=== PATIENT | male | born 1945 | race Caucasian/White ===

== ENCOUNTER 2025-02-14 00:56 | Observation (INO) ==
[2025-02-14 01:21] LABS: Base Excess VBG 5.2 mEq/L; HCO3 VBG 29 mmol/L; Oxygen Saturation VBG 93.5 %; PCO2 VBG 39 mmHg (38-50); PO2 VBG 63 mmHg; pH VBG 7.48 (7.36-7.41)
--- NOTE | 2025-02-14 01:21 | Emergency Department Note ---
History of Present Illness General Chief complaint: Shortness of Breath/Dyspnea Stated complaint: SOB, [employer] Time Seen by Provider: 02/14/25 01:07 History of Present Illness This 79-year-old male with a past medical history of A-fib on Eliquis, heart failure, hypertension who just moved here from [place] presents ER for feeling short of breath and lightheaded with bradycardia. Patient had his pacemaker batteries replaced back in December in [place]. Patient states he feels like his pacemaker has been going off and is set at 50 beats. He states his heart rate has dropped down to 38. Patient denies chest pain, abdominal pain, fever, chills, flulike illness, severe weight changes. Home Medications Medication Instructions Recorded Confirmed Type apixaban 5 mg tablet (Eliquis) 5 mg PO BID 02/14/25 02/14/25 History clonazepam 0.5 mg tablet 0.25 mg PO DAILY PRN Anxiety 02/14/25 02/14/25 History empagliflozin 25 mg tablet 12.5 mg PO QAM 02/14/25 02/14/25 History (Jardiance) ezetimibe 10 mg tablet 10 mg PO HS 02/14/25 02/14/25 History furosemide 20 mg tablet 20 mg PO QAM 02/14/25 02/14/25 History isosorbide mononitrate 30 mg 30 mg PO QAM 02/14/25 02/14/25 History tablet,extended release 24 hr metoprolol succinate 100 mg 100 mg PO BID 02/14/25 02/14/25 History tablet,extended release 24 hr [id number]-[id number] 300 mcg-K 60 1 tab PO DAILY 02/14/25 02/14/25 History mcg-lycop 600 mcg-lutein 300 mcg tablet (Centrum Silver Men) nitroglycerin 0.4 mg sublingual 0.4 mg sublingual UD PRN Chest Pain 02/14/25 02/14/25 History tablet (Nitrostat) rosuvastatin 40 mg tablet 40 mg PO HS 02/14/25 02/14/25 History sacubitril 24 mg-valsartan 26 mg 1 tab PO BID 02/14/25 02/14/25 History tablet (Entresto) spironolactone 25 mg tablet 12.5 mg PO QAM 02/14/25 02/14/25 History Allergies Allergy/AdvReac Type Severity Reaction Status Date / Time No Known Allergies Allergy Unverified 02/14/25 02:32 Past Med/Surg History Problem List (Updated 02/14/25 @ 02:45 by Guerita Larsen PA-C) Elevated troponin (Acute) Congestive heart failure (Acute) Social History Smoking Status: Never smoker Feels Safe at Home: Yes Review of Systems A total of 10 systems reviewed and were otherwise negative Physical Exam Vital Signs Vital Signs - 24 hr 02/14/25 00:59 02/14/25 01:10 02/14/25 01:11 Temperature 36.8 C Temperature Source Temporal Artery Scan Pulse Rate 58 L Pulse Rate [Apical] Respiratory Rate 19 Respiratory Effort / Characteristics Non-Labored Spontaneous Respiratory Depth Normal Blood Pressure 127/75 Blood Pressure [Right Arm] Blood Pressure Mean 92 Blood Pressure Mean [Right Arm] Pulse Oximetry 98 97 97 Oxygen Delivery Method Room Air Room Air Room Air Sepsis Recent Fever Within 48 Hours No Sepsis New/Unexplained Change in Mental Status N/A Sepsis Action Taken by Nursing No Action Required 02/14/25 01:17 02/14/25 01:17 02/14/25 01:30 Temperature Temperature Source Pulse Rate 52 L Pulse Rate [Apical] 50 L 53 L Respiratory Rate 18 18 Respiratory Effort / Characteristics Respiratory Depth Blood Pressure Blood Pressure [Right Arm] 127/61 124/60 Blood Pressure Mean Blood Pressure Mean [Right Arm] 83 81 Pulse Oximetry 96 96 Oxygen Delivery Method Room Air Room Air Sepsis Recent Fever Within 48 Hours Sepsis New/Unexplained Change in Mental Status Sepsis Action Taken by Nursing 02/14/25 02:00 02/14/25 02:46 Temperature Temperature Source Pulse Rate Pulse Rate [Apical] 50 L 50 L Respiratory Rate 18 20 Respiratory Effort / Characteristics Respiratory Depth Blood Pressure Blood Pressure [Right Arm] 99/57 L 105/56 L Blood Pressure Mean Blood Pressure Mean [Right Arm] 71 72 Pulse Oximetry 97 96 Oxygen Delivery Method Room Air Room Air Sepsis Recent Fever Within 48 Hours Sepsis New/Unexplained Change in Mental Status Sepsis Action Taken by Nursing VITALS: Vitals are noted on the nurse's note and reviewed by myself. Vital signs stable. GENERAL: Pleasant male, in no acute distress, nondiaphoretic, well-developed well-nourished. SKIN: Capillary reflex less than 2 seconds. HEENT: Normocephalic. PERRLA. EOMI. Nares patent. Mucous membranes moist. Neck is supple without nuchal rigidity. HEART: Bradycardic rate and rhythm LUNGS: Clear to auscultation bilaterally without wheezes, rales or rhonchi. No retractions or accessory muscle use. ABDOMEN: Positive bowel sounds x 4. Normal tympanic percussion. Soft, nontender, without masses or organomegaly. Arrington sign negative. No guarding or rebound tenderness. no CVA tenderness MUSCULOSKELETAL: No gross musculoskeletal defects. NEURO: Patient was alert and oriented to person place and time. No focal neurological deficits. Course Administered Medications Discontinued Medications Furosemide (Furosemide 40 Mg/4 Ml Vial) 40 mg IV ONE ONE Stop: 02/14/25 02:43 Last Admin: 02/14/25 02:46 Dose: 40 mg Documented By: AN Medical Decision Making Medical Records Attestation: I reviewed the patient's medical records. Home Medications Current Medication List: was personally reviewed by me Laboratory Data Attestation: I reviewed the patient's lab results. 02/14/25 01:13 02/14/25 02:13 Lab Results 02/14/25 02/14/25 02/14/25 Range/Units 01:13 01:16 02:13 WBC 6.12 (4.8-10.8) K/ul RBC 4.81 (4.70-6.10) M/uL Hgb 13.5 L (14.0-18.0) g/dl Hct 41.3 L (42.0-52.0) % MCV 85.9 (80.0-100.0) fL MCH 28.1 (25.0-34.0) pg MCHC 32.7 (32.0-36.0) g/dL RDW Std Deviation 45.5 (36.4-46.3) fL RDW Coeff of Yenifer 14.5 (11.5-14.5) % Plt Count 118 L (130-400) K/uL MPV 11.8 (9.4-12.4) fL Immature Gran % (Auto) 0.2 % Neut % (Auto) 54.2 % Lymph % (Auto) 29.9 % [place] % (Auto) 11.8 % Eos % (Auto) 3.4 % Baso % (Auto) 0.5 % Neut # (Auto) 3.32 (1.40-6.50) K/uL Lymph # (Auto) 1.83 (1.20-3.40) K/uL [place] # (Auto) 0.72 H (0.11-0.59) K/uL Eos # (Auto) 0.21 (0.00-0.50) K/uL Baso # (Auto) 0.03 (0.00-0.20) K/uL Immature Gran # (Auto) 0.01 (0.01-0.20) K/uL PT Cancelled 11.7 INR Cancelled 1.1 APTT Cancelled 37 H PTT Ratio Cancelled 1.4 VBG pH 7.48 H (7.36-7.41) VBG pCO2 39 (38-50) mmHg VBG pO2 63 mmHg VBG HCO3 29 mmol/L VBG O2 Saturation 93.5 % VBG Base Excess 5.2 mEq/L Sodium 139 (136-145) mmol/L Potassium TNP 4.0 Chloride 106 (98-107) mmol/L Carbon Dioxide 29 (21-32) mmol/L Anion Gap 4 (3-11) BUN 26 H (6-23) mg/dl Creatinine 1.31 (0.6-1.4) mg/dl Est Cr Clr Drug Dosing 36.4 ml/min eGFR 55.03 BUN/Creatinine Ratio 19.8 (10-20) Glucose 121 H (70-99(Fasting)) mg/dl Calcium 10.3 (8.6-10.3) mg/dl Magnesium 2.0 (1.7-2.4) mg/dl Total Bilirubin 0.4 (0.2-1.0) mg/dl AST TNP 24 ALT 26 (7-52) U/L Alkaline Phosphatase 45 (34-104) U/L Troponin I High Sens 42.9 H (0-20) pg/ml B-Natriuretic Peptide 1336 H (0-100) pg/ml Total Protein 7.5 (6.0-8.3) gm/dl Albumin 4.4 (3.4-5.0) gm/dl Globulin 3.1 (2.5-4.0) gm/dl Albumin/Globulin Ratio 1.4 (0.9-2) Imaging Data Attestation: I personally reviewed and interpreted this imaging study as follows: Radiologist's Impression: Chest X-Ray 02/14/25 01:05 EXAM: XR chest 1V portable CLINICAL HISTORY: Dyspnea. TECHNIQUE: An X-ray image of the chest is obtained in AP projection. COMPARISON: No prior studies are available for comparison. FINDINGS: Pulmonary Parenchyma: No evidence of consolidation, collapse. A small opacity is noted in the right lower zone adjacent to the costophrenic angle. Left lower zone atelectasis. No evidence of pleural effusion or pleural thickening. Heart and Mediastinum: Mild cardiomegaly. No mediastinal masses. Bony Thorax: Sternotomy sutures are noted. Tiny metallic clips are noted in the right and left mediastinal borders. Soft Tissues: Soft tissues overlying the chest wall are unremarkable. A cardiac pacemaker device is noted in the left mid-thoracic wall. IMPRESSION: Right lower zone opacity adjacent to the costophrenic angle. Possibly atelectasis/infiltrate. Clinical correlation and follow-up is recommended. Left lower zone atelectasis. Mild cardiomegaly with vascular congestion. Electronically signed by Kt Wynn 02-14-2025 02:09 AM MDM Narrative Prior records/ancillary studies reviewed and summarized above. Nursing notes reviewed. Additional history obtained from nursing. The patient's history was concerning for short of breath and feeling lightheaded. Differential diagnosis: Etiologies such as pacemaker problem, heart failure, metabolic, infection, hypo/hyperglycemia, electrolyte abnormalities, cardiac sources, intracerebral event, toxicologic, neurologic, as well as others were entertained. Physical examination: As above. ER treatment provided: IV Lock An order was placed for continuous cardiac monitoring. The monitor shows a rate of 40-80 with a A-fib rhythm per my interpretation. Patient was placed on the monitor On reassessment the patient felt better. Diagnostics interpretation by me: ECG: Ordered for dyspnea EKG: Irregularly irregular with ventricular rate of 53 occasionally paced, left axis, Q waves in the inferior leads. Impression A-fib rate of 53 left axis independently interpreted by myself The labs Independently Interpreted by myself revealed elevated BNP and troponin No worrisome leukocytosis Imaging studies: X-ray was reviewed and read by radiology Consultation: A consultation was placed with the hospitalist. The case was discussed and diagnostics were reviewed. The patient was evaluated in the ER for further treatment. Exam and history seem consistent with heart failure. Patient was given Lasix here. Troponin was most likely elevated secondary to the heart failure. Patient is on Eliquis and has known A-fib. He was rate controlled with his A- fib. Medicine was consulted and case discussed. Patient was admitted to the medical service. By the evaluation outlined above emergent etiologies such as infection, electrolyte abnormalities, intracerebral event, toxologic, neurologic, abnormalities blood glucose, metabolic, as well as others were deemed relatively unlikely. The pt informed about the findings as listed above. All questions were answered and pleased with the treatment. The chart was completed utilizing [employer] Speech voice recognition software. Grammatical errors, random word insertions, pronoun errors, and incomplete sentences are an occassional consequence of this system due to software limitations, ambient noise, and hardware issues. Any formal questions or concerns about the content, text, or information contained within the body of this dictation should be directly addressed to the physician traffic assistant for clarification. Impression & Plan Congestive heart failure, Elevated troponin Discharge Plan Visit Data Chief Complaint: Shortness of Breath/Dyspnea Stated Complaint: SOB, PEACE [employer] ED Provider: Bozena Bonilla ED Midlevel Provider: Guerita Larsen Discharge Problem: Congestive heart failure, Elevated troponin Patient Disposition: Admitted As Inpatient Condition: Fair Forms Stand Alone Forms: [facility] bttn Prescriptions Prescriptions: No Action metoprolol succinate 100 mg tablet extended release 24 hr 100 mg PO BID furosemide 20 mg tablet 20 mg PO QAM ezetimibe 10 mg tablet 10 mg PO HS rosuvastatin 40 mg tablet 40 mg PO HS isosorbide mononitrate 30 mg tablet extended release 24 hr 30 mg PO QAM spironolactone 25 mg tablet 12.5 mg PO QAM Eliquis 5 mg Tablet 5 mg PO BID Jardiance 25 mg Tablet 12.5 mg PO QAM Entresto 24-26 mg Tablet 1 tab PO BID nitroglycerin [Nitrostat] 0.4 mg Tablet, Sublingual 0.4 mg sublingual UD PRN (Reason: Chest Pain) clonazepam 0.5 mg Tablet 0.25 mg PO DAILY PRN (Reason: Anxiety) Centrum Silver Men [id number] mcg Tablet 1 tab PO DAILY Referrals Referrals: PCP,NO [Primary Care Provider] - Discharge Problem: Congestive heart failure Qualifiers: Heart failure type: unspecified Heart failure chronicity: acute Qualified Code(s): I50.9 - Heart failure, unspecified
[2025-02-14 01:28] LABS: Basophils # (auto) 0.03 K/uL (0.00-0.20); Basophils % (auto) 0.5 %; Eosinophils # (auto) 0.21 K/uL (0.00-0.50); Eosinophils % (auto) 3.4 %; Hematocrit (blood only) 41.3 % (42.0-52.0); Hemoglobin 13.5 g/dl (14.0-18.0); Immature Granulocytes # (auto) 0.01 K/uL (0.01-0.20); Immature Granulocytes % (auto) 0.2 %; Lymphocytes # (auto) 1.83 K/uL (1.20-3.40); Lymphocytes % (auto) 29.9 %; Mean Corpuscular Hemoglobin 28.1 pg (25.0-34.0); Mean Corpuscular Hgb Conc 32.7 g/dL (32.0-36.0); Mean Corpuscular Volume 85.9 fL (80.0-100.0); Mean Platelet Volume 11.8 fL (9.4-12.4); Monocytes # (auto) 0.72 K/uL (0.11-0.59); Monocytes % (auto) 11.8 %; Neutrophils # (auto) 3.32 K/uL (1.40-6.50); Neutrophils % (auto) 54.2 %; Platelet Count 118 K/uL (130-400); RDW Coefficient of Variation 14.5 % (11.5-14.5); RDW Standard Deviation 45.5 fL (36.4-46.3); Red Blood Count 4.81 M/uL (4.70-6.10); White Blood Count 6.12 K/ul (4.8-10.8)
[2025-02-14 02:04] LABS: Alanine Aminotransferase 26 U/L (7-52); Albumin Globulin Ratio 1.4 (0.9-2); Albumin Level 4.4 gm/dl (3.4-5.0); Alkaline Phosphatase 45 U/L (34-104); Anion Gap 4 (3-11); BUN Creatinine Ratio 19.8 (10-20); Bilirubin,Total 0.4 mg/dl (0.2-1.0); Blood Urea Nitrogen 26 mg/dl (6-23); Calcium 10.3 mg/dl (8.6-10.3); Carbon Dioxide 29 mmol/L (21-32); Chloride 106 mmol/L (98-107); Creatinine Clr Calc Pharmacy 36.4 ml/min; Globulin 3.1 gm/dl (2.5-4.0); Glucose 121 mg/dl (70-99(Fasting)); Sodium 139 mmol/L (136-145); Total Protein 7.5 gm/dl (6.0-8.3); Troponin I High Sensitivity 42.9 pg/ml (0-20)
--- NOTE | 2025-02-14 02:10 | XRay Report ---
EXAM: XR chest 1V portable CLINICAL HISTORY: Dyspnea. TECHNIQUE: An X-ray image of the chest is obtained in AP projection. COMPARISON: No prior studies are available for comparison. FINDINGS: Pulmonary Parenchyma: No evidence of consolidation, collapse. A small opacity is noted in the right lower zone adjacent to the costophrenic angle. Left lower zone atelectasis. No evidence of pleural effusion or pleural thickening. Heart and Mediastinum: Mild cardiomegaly. No mediastinal masses. Bony Thorax: Sternotomy sutures are noted. Tiny metallic clips are noted in the right and left mediastinal borders. Soft Tissues: Soft tissues overlying the chest wall are unremarkable. A cardiac pacemaker device is noted in the left mid-thoracic wall. IMPRESSION: Right lower zone opacity adjacent to the costophrenic angle. Possibly atelectasis/infiltrate. Clinical correlation and follow-up is recommended. Left lower zone atelectasis. Mild cardiomegaly with vascular congestion. Electronically signed by Kt Wynn 02-14-2025 02:09 AM
[2025-02-14] MEDS: FUROSEMIDE 40 MG/4 ML VIAL IV ONE (02:46)
[2025-02-14 02:53] LABS: INR 1.1 (0.9-1.1); Partial Thromboplastin Ratio 1.4; Partial Thromboplastin Time 37 Seconds (21-31); Prothrombin Time 11.7 Seconds (9.0-12.0)
--- NOTE | 2025-02-14 02:53 | History & Physical Report ---
Date of Service February 14, 2025 Assessment & Plan (1) Congestive heart failure: (2) Hypertension: (3) Hyperlipidemia: (4) Atrial fibrillation: (5) CAD (coronary artery disease): Plan 79yo male with complicated cardiac history to include ICD placement for cardiac arrest, CAD s/p CABG with stenting, MV replacement, HTN, HLP, AF presenting with SOB, episodes of lightheadedness. Patient reports episodes of bradycardia during the night with HR at times into the 30's. Adequate oxygenation on room air. He does not appear to be overtly volume overloaded on exam although with elevated troponin=42.9 and elevated EMY=3535 (unsure of baseline) #CHF - Given Lasix 40mg IV in the ER -Admit to medical with telemetry -Monitor output -Daily weights -Trend troponin -Check 2D echo -Obtain records from [facility] in [place], [place] -Cardiology consultation appreciated -Hold Metoprolol for now given low heart rate -Hold Isosorbide mononitrate for now with borderline low BP -Continue Entresto -Continue Jardiance 12.5mg po daily -Continue Entresto 26/24mg po BID -Continue Lasix 20mg po qAM -Continue Spironolactone 12.5mg po qAM #Atrial Fibrillation - with ICD in place. -Continue Apixaban - will reduce dosage to 2.5mg BID due to patient age, weight of 57kg -Holding Metoprolol for now given low HR #Anxiety -Clonazepam 0.25mg po daily PRN #Hyperlipidemia -Continue Zetia 10mg po qHS -Continue Crestor 40mg po qHS History of Present Illness Chief Complaint: shortness of breath Primary Care Provider: NO PCP Mr. De Rogers is a pleasant 79yo male with history of Sudden Cardiac s/p AICD placement, CAD s/p CABG with subsequent stenting, Mitral valve repair, Atrial Fibrillation and HTN presenting with shortness of breath and lightheadedness intermittent for the last several days. Patient recently moved here from [place]. He is establishing with Cardiology and is scheduled to see them on 05/01/2025. Patient reports that for the last several days he has been having episodes of SOB as well as lightheadedness. He feels that his HR is dropping during the night - as low as 38bpm. He denies weight gain, edema or orthopnea. Has had some PND. Patient reports he had his pacemaker battery replaced 2 months ago. No additional complaints at this time. In the ER patient with paced rhythm ER Course: Lasix 40mg IV Allergies Allergy/AdvReac Type Severity Reaction Status Date / Time No Known Allergies Allergy Unverified 02/14/25 02:32 Home Medications Medication Instructions Recorded Confirmed Type apixaban 5 mg tablet (Eliquis) 5 mg PO BID 02/14/25 02/14/25 History clonazepam 0.5 mg tablet 0.25 mg PO DAILY PRN Anxiety 02/14/25 02/14/25 History empagliflozin 25 mg tablet 12.5 mg PO QAM 02/14/25 02/14/25 History (Jardiance) ezetimibe 10 mg tablet 10 mg PO HS 02/14/25 02/14/25 History furosemide 20 mg tablet 20 mg PO QAM 02/14/25 02/14/25 History isosorbide mononitrate 30 mg 30 mg PO QAM 02/14/25 02/14/25 History tablet,extended release 24 hr metoprolol succinate 100 mg 100 mg PO BID 02/14/25 02/14/25 History tablet,extended release 24 hr yueqenuk-yw-uzxil 300 mcg-K 60 1 tab PO DAILY 02/14/25 02/14/25 History mcg-lycop 600 mcg-lutein 300 mcg tablet (Centrum Silver Men) nitroglycerin 0.4 mg sublingual 0.4 mg sublingual UD PRN Chest Pain 02/14/25 02/14/25 History tablet (Nitrostat) rosuvastatin 40 mg tablet 40 mg PO HS 02/14/25 02/14/25 History sacubitril 24 mg-valsartan 26 mg 1 tab PO BID 02/14/25 02/14/25 History tablet (Entresto) spironolactone 25 mg tablet 12.5 mg PO QAM 02/14/25 02/14/25 History Past Med/Surg History Problem List (Updated 02/14/25 @ 03:15 by Sapna Stark DO) Elevated troponin (Acute) Congestive heart failure (Acute) Medical History (Updated 02/14/25 @ 03:15 by Sapna Stark DO) Hyperlipidemia Hypertension Atrial fibrillation 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 CAD (coronary artery disease) s/p CABG, stenting Surgical History (Updated 02/14/25 @ 03:15 by Sapna Stark DO) History of cardiac defibrillator placement Family History (Updated 02/14/25 @ 03:15 by Sapna Stark DO) Other Coronary heart disease Social History (Updated 02/14/25 @ 03:15 by Sapna Stark DO) Smoking Status: Never smoker Hx Alcohol Use: Yes Feels Safe at Home: Yes Review of Systems Review of Systems: All systems reviewed & are unremarkable except as noted in HPI & below Physical Exam Physical Exam: General: patient resting comfortably, NAD, non-toxic in appearance, AA&O x 4 Skin: warm, dry, intact, no rashes or lesions HEENT: NC/AT, PERRL, EOMI, anicteric sclera, conjunctiva without injection, external ear normal to inspection and nontender, nares patent, moist mucus membranes, dentition intact, no oropharyngeal lesions, neck supple, trachea midline, no LAD, no thyromegaly, no JVD Heart: +S1/S2, regular, no m/r/g Lungs: equal air entry bilaterally, no rales/rhonchi/wheezes Abd: +BS, soft, NT/ND, no masses/organomegaly/ascites Ext: warm, 2+ pulses in UE/LE bilaterally, no clubbing/cyanosis or edema Neuro: nonfocal, patient AA&O x 4, speech intact, no facial droop, moving all extremities on command with equal strength 5/5 Results & Data Results & Data Vital Signs (Past 12 Hours) Vital Signs Temp Pulse Pulse Resp BP BP Pulse Ox 02/14/25 02:46 50 L 20 105/56 L 96 02/14/25 02:00 50 L 18 99/57 L 97 02/14/25 01:30 53 L 18 124/60 96 02/14/25 01:17 50 L 18 127/61 96 02/14/25 01:17 52 L 02/14/25 01:11 97 02/14/25 01:10 97 02/14/25 00:59 36.8 C 58 L 19 127/75 98 O2 Del Method 02/14/25 02:46 Room Air 02/14/25 02:00 Room Air 02/14/25 01:30 Room Air 02/14/25 01:17 Room Air 02/14/25 01:17 02/14/25 01:11 Room Air 02/14/25 01:10 Room Air 02/14/25 00:59 Room Air Laboratory Results Laboratory Results WBC 6.12 K/ul (4.8-10.8) 02/14/25 01:13 RBC 4.81 M/uL (4.70-6.10) 02/14/25 01:13 Hgb 13.5 g/dl (14.0-18.0) L 02/14/25 01:13 Hct 41.3 % (42.0-52.0) L 02/14/25 01:13 MCV 85.9 fL (80.0-100.0) 02/14/25 01:13 MCH 28.1 pg (25.0-34.0) 02/14/25 01:13 MCHC 32.7 g/dL (32.0-36.0) 02/14/25 01:13 RDW Std Deviation 45.5 fL (36.4-46.3) 02/14/25 01:13 RDW Coeff of Yenifer 14.5 % (11.5-14.5) 02/14/25 01:13 Plt Count 118 K/uL (130-400) L 02/14/25 01:13 MPV 11.8 fL (9.4-12.4) 02/14/25 01:13 Immature Gran % (Auto) 0.2 % 02/14/25 01:13 Neut % (Auto) 54.2 % 02/14/25 01:13 Lymph % (Auto) 29.9 % 02/14/25 01:13 [place] % (Auto) 11.8 % 02/14/25 01:13 Eos % (Auto) 3.4 % 02/14/25 01:13 Baso % (Auto) 0.5 % 02/14/25 01:13 Neut # (Auto) 3.32 K/uL (1.40-6.50) 02/14/25 01:13 Lymph # (Auto) 1.83 K/uL (1.20-3.40) 02/14/25 01:13 [place] # (Auto) 0.72 K/uL (0.11-0.59) H 02/14/25 01:13 Eos # (Auto) 0.21 K/uL (0.00-0.50) 02/14/25 01:13 Baso # (Auto) 0.03 K/uL (0.00-0.20) 02/14/25 01:13 Immature Gran # (Auto) 0.01 K/uL (0.01-0.20) 02/14/25 01:13 PT 11.7 Seconds (9.0-12.0) 02/14/25 02:13 INR 1.1 (0.9-1.1) 02/14/25 02:13 APTT 37 Seconds (21-31) H 02/14/25 02:13 PTT Ratio 1.4 02/14/25 02:13 VBG pH 7.48 (7.36-7.41) H 02/14/25 01:16 VBG pCO2 39 mmHg (38-50) 02/14/25 01:16 VBG pO2 63 mmHg 02/14/25 01:16 VBG HCO3 29 mmol/L 02/14/25 01:16 VBG O2 Saturation 93.5 % 02/14/25 01:16 VBG Base Excess 5.2 mEq/L 02/14/25 01:16 Sodium 139 mmol/L (136-145) 02/14/25 01:13 Potassium 4.0 mmol/L (3.5-5.1) 02/14/25 02:13 Chloride 106 mmol/L (98-107) 02/14/25 01:13 Carbon Dioxide 29 mmol/L (21-32) 02/14/25 01:13 Anion Gap 4 (3-11) 02/14/25 01:13 BUN 26 mg/dl (6-23) H 02/14/25 01:13 Creatinine 1.31 mg/dl (0.6-1.4) 02/14/25 01:13 Est Cr Clr Drug Dosing 36.4 ml/min 02/14/25 01:13 eGFR 55.03 02/14/25 01:13 BUN/Creatinine Ratio 19.8 (10-20) 02/14/25 01:13 Glucose 121 mg/dl (70-99(Fasting)) H 02/14/25 01:13 Calcium 10.3 mg/dl (8.6-10.3) 02/14/25 01:13 Magnesium 2.0 mg/dl (1.7-2.4) 02/14/25 01:13 Total Bilirubin 0.4 mg/dl (0.2-1.0) 02/14/25 01:13 AST 24 U/L (13-39) 02/14/25 02:13 ALT 26 U/L (7-52) 02/14/25 01:13 Alkaline Phosphatase 45 U/L (34-104) 02/14/25 01:13 Troponin I High Sens 42.9 pg/ml (0-20) H 02/14/25 01:13 B-Natriuretic Peptide 1336 pg/ml (0-100) H 02/14/25 01:13 Total Protein 7.5 gm/dl (6.0-8.3) 02/14/25 01:13 Albumin 4.4 gm/dl (3.4-5.0) 02/14/25 01:13 Globulin 3.1 gm/dl (2.5-4.0) 02/14/25 01:13 Albumin/Globulin Ratio 1.4 (0.9-2) 02/14/25 01:13 Impressions Chest X-Ray 02/14/25 01:05 EXAM: XR chest 1V portable CLINICAL HISTORY: Dyspnea. TECHNIQUE: An X-ray image of the chest is obtained in AP projection. COMPARISON: No prior studies are available for comparison. FINDINGS: Pulmonary Parenchyma: No evidence of consolidation, collapse. A small opacity is noted in the right lower zone adjacent to the costophrenic angle. Left lower zone atelectasis. No evidence of pleural effusion or pleural thickening. Heart and Mediastinum: Mild cardiomegaly. No mediastinal masses. Bony Thorax: Sternotomy sutures are noted. Tiny metallic clips are noted in the right and left mediastinal borders. Soft Tissues: Soft tissues overlying the chest wall are unremarkable. A cardiac pacemaker device is noted in the left mid-thoracic wall. IMPRESSION: Right lower zone opacity adjacent to the costophrenic angle. Possibly atelectasis/infiltrate. Clinical correlation and follow-up is recommended. Left lower zone atelectasis. Mild cardiomegaly with vascular congestion. Electronically signed by Kt Wynn 02-14-2025 02:09 AM ECG Additional Comments: EKG per my interpretation with AF with slow ventricular response, 53bpm, frequent V-paced complexes No prior EKGs available Code Status & VTE Plan VTE Prophylaxis Plan VTE Prophylaxis will be ordered: Yes PG Care Time/CCT Total # of Minutes Spent Total Time Spent with Patient: Total time spent is greater than 50% in coordination of care (as documented) at patient's floor/unit and/or counseling patient: Coding Level of Care Code 93002 INT INP/OBS CARE 3/75MIN Diagnoses Congestive heart failure I50.9 Heart failure chronicity: acute Heart failure type: unspecified Hypertension I10 Hyperlipidemia E78.5 Atrial fibrillation I48.91 CAD (coronary artery disease) I25.10 (1) Congestive heart failure Heart failure chronicity: acute Heart failure type: unspecified Qualified Code(s): I50.9 - Heart failure, unspecified
[2025-02-14 03:40] LABS: Troponin I High Sensitivity 39.5 pg/ml (0-20)
--- NOTE | 2025-02-14 04:10 | Emergency Department Note ---
ED Visit Note I was consulted by the Advanced Practice Provider. I approved the management plan and take responsibility for the patient management. This includes the aspects of: -History/Physical -MDM -I independently interpreted the following studies:Studies and results .
[2025-02-14] MEDS ORDERED: clonazePAM 0.5 MG TAB PO PRN (04:58)
[2025-02-14] MEDS ORDERED: ACETAMINOPHEN 325 MG TAB PO PRN (04:58)
[2025-02-14 06:08] LABS: Appearance Urine Clear (Clear); Bilirubin Urine Negative (Negative); Blood Urine Negative (Negative); Color Urine Yellow; Glucose Urine UA 2+ (Negative); Ketones Urine Negative (Negative); Leukocyte Esterase Urine Negative (Negative); Nitrite Urine Negative (Negative); Protein Urine Negative (Negative); Specific Gravity Urine 1.008 (1.000-1.030); Urobilinogen Urine Negative (Negative)
[2025-02-14] MEDS: VALSARTAN/SACUBITRIL 26/24MG TAB PO SCH (07:39)
[2025-02-14] MEDS: FUROSEMIDE 20 MG TAB PO SCH (07:39)
[2025-02-14] MEDS: APIXABAN 2.5 MG TAB PO SCH (07:39)
[2025-02-14] MEDS: SPIRONOLACTONE 12.5 MG TAB PO SCH (08:16)
[2025-02-14] MEDS: EMPAGLIFLOZIN 25 MG TAB PO SCH (10:02)
--- NOTE | 2025-02-14 11:18 | XCELERA ---
[id number]
--- NOTE | 2025-02-14 11:31 | Cardiology Consultation ---
Date of Consultation February 14, 2025 Assessment & Plan (1) Heart failure, systolic, with acute decompensation: (2) Elevated troponin: (3) CAD (coronary artery disease): (4) Atrial fibrillation: (5) Mitral regurgitation: (6) Dyspnea: (7) Bradycardia: Plan 1. Dyspnea: He describes orthopnea and paroxysmal nocturnal dyspnea. While he did not notice any significant peripheral edema, he does have a significant cardiomyopathy and likely have pulmonary vascular congestion. He did receive a diuretic and appears to have had a good response. Symptoms improved. Will need to intensify his outpatient medical regimen. Perhaps as needed dosing of additional Lasix. 2. Dilated cardiomyopathy: Unclear etiology. Will wait for some records regarding any recent ischemic evaluations. He may need repeat catheterization to exclude any options for revascularization. No current symptoms suggestive of angina or coronary insufficiency. He has been exercising recently as well. He is on a medical regimen to include Jardiance, metoprolol succinate, Entresto and spironolactone. We may have an opportunity to intensify his regimen by increasing the doses of Entresto and spironolactone. 3. Atrial fibrillation: Unknown if this is permanent or paroxysmal. Few symptoms. Adequate rate control. On appropriate systemic anticoagulation. 4. Coronary disease: Status post surgical and percutaneous revascularization. No current symptoms of angina. Will see what evaluation has been done recently in the setting of his cardiomyopathy. He will continue aggressive secondary prevention with high-dose rosuvastatin and Zetia. 5. Bradycardia: I think the low heart rates seen on his pulse oximeter are likely artifactual. Most likely related to his atrial fibrillation. Pacemaker currently set at 50. It sounds as if this was increased due to his concerns about bradycardia. We are in a difficult situation. He would likely benefit from more rate support, but pacing from the RV apex in the setting of his severe cardiomyopathy may worsen LV function. In that setting he would be a better candidate for a biventricular device. If his atrial fibrillation is not permanent even addition of an atrial lead could provide adequate rate support. 6. Mitral valve disease: Status post mitral valve repair. Minimal regurgitation on most recent echocardiogram. 7. Single-chamber [employer] ICD: He has elevated RV pacing thresholds. Currently set at VVI 50. Approximately 20% ventricular pacing. No recent arrhythmias or therapies. History of Present Illness Reason for Consultation: Shortness of breath Requesting Physician: Lincoln Attending Physician: Orion Roche MD, PhD History of Present Illness The patient is an 79-year-old gentleman with an extensive cardiac history to include both surgical and percutaneous revascularization, mitral valve repair, cardiac arrest and subsequent implantation of single-chamber ICD as well as atrial fibrillation. He recently moved to the area and had received most of his care in [place] prior to the move. This included a pulse generator change for his ICD in December of this year. Patient states that over the past 2 days he has had some element of dyspnea. This was more apparent last night when he was trying to sleep. He would have difficulty lying flat and had to sit up and walk around some before he could go back to bed. He was also concerned about heart rates in the 30s. He has a pulse oximeter at home and states that his heart rate occasionally drops into the 30s at nighttime. This was a problem in the past addressed by a change in his device settings. However, he continues to notice some lower heart rates at times. He did not endorse symptoms of dizziness or lightheadedness. Until 2 days ago he was feeling fine. He has resumed exercise which includes some aerobic activity. He does not report limiting dyspnea or exertional chest pain associated with exercise. Again, no dizziness, lightheadedness or syncope. He does occasionally notice some palpitations that he interprets as atrial fibrillation. He has not noticed any swelling or edema. His cardiac history started in the late 1980s when he underwent bypass surgery. Apparently was an early complication resulting in a repeat thoracotomy within 1 week of his initial surgery. Possibly due to graft failure. Around 2002 he reportedly suffered an [id number] cardiac arrest. According to the patient there was no known etiology and he underwent implantation of a single-chamber ICD. He reports receiving therapy from the device on 1 occasion. Unclear if that was appropriate or inappropriate. Several years ago he required repeat open heart surgery for mitral valve repair. Unclear if he underwent revascularization again at that time. He does report several stents between his 2 heart surgeries. He also knows about atrial fibrillation but he is not clear on whether this is permanent or paroxysmal. He feels that he has had atrial fibrillation for few years. Allergies Allergy/AdvReac Type Severity Reaction Status Date / Time No Known Allergies Allergy Unverified 02/14/25 02:32 Home Medications Medication Instructions Recorded Confirmed Type apixaban 5 mg tablet (Eliquis) 5 mg PO BID 02/14/25 02/14/25 History clonazepam 0.5 mg tablet 0.25 mg PO DAILY PRN Anxiety 02/14/25 02/14/25 History empagliflozin 25 mg tablet 12.5 mg PO QAM 02/14/25 02/14/25 History (Jardiance) ezetimibe 10 mg tablet 10 mg PO HS 02/14/25 02/14/25 History furosemide 20 mg tablet 20 mg PO QAM 02/14/25 02/14/25 History isosorbide mononitrate 30 mg 30 mg PO QAM 02/14/25 02/14/25 History tablet,extended release 24 hr metoprolol succinate 100 mg 100 mg PO BID 02/14/25 02/14/25 History tablet,extended release 24 hr [id number] 300 mcg-K 60 1 tab PO DAILY 02/14/25 02/14/25 History mcg-lycop 600 mcg-lutein 300 mcg tablet (Centrum Silver Men) nitroglycerin 0.4 mg sublingual 0.4 mg sublingual UD PRN Chest Pain 02/14/25 02/14/25 History tablet (Nitrostat) rosuvastatin 40 mg tablet 40 mg PO HS 02/14/25 02/14/25 History sacubitril 24 mg-valsartan 26 mg 1 tab PO BID 02/14/25 02/14/25 History tablet (Entresto) spironolactone 25 mg tablet 12.5 mg PO QAM 02/14/25 02/14/25 History Patient History Medical History (Updated 02/14/25 @ 11:25 by Serge Kimble MD) Hyperlipidemia Hypertension 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 CAD (coronary artery disease) s/p CABG, stenting Surgical History (Updated 02/14/25 @ 03:15 by Sapna Stark DO) History of cardiac defibrillator placement Family History (Updated 02/14/25 @ 03:15 by Sapna Stark DO) Other Coronary heart disease Social History (Updated 02/14/25 @ 03:15 by Sapna Stark DO) Smoking Status: Never smoker Hx Alcohol Use: Yes Alcohol type: wine Hx Substance Use: No Preferred Language: Lebanese Communication Ability: Effective Applications Packager Required: No Beliefs That Will Affect Care: None Current Living Situation: Spouse Feels Safe at Home: Yes Assistive Devices: Glasses Review of Systems Review of Systems: Per HPI Physical Exam Physical Exam: The patient is alert and oriented. Mood and affect appeared normal. He answered all questions appropriately. HEENT: Pupils are equal and reactive to light and accommodation. Extraocular movements are intact. The sclerae are anicteric. Neuro: Cranial nerves intact Chest: Well-healed sternotomy scar. Device implant site in left upper pectoral area. Lungs: Clear to auscultation bilaterally. He has good air movement without use of accessory muscles. No rales wheezes or rhonchi. Cardiac: Heart demonstrates an irregular rate and rhythm. Normal S1 and S2. No murmurs on examination. Pulses: The patient has palpable radial pulses bilaterally that are equal in intensity Extremities: There was no evidence of hypoperfusion. There is no cyanosis or clubbing. There is no edema. Skin: I did not appreciate any rashes on examination today. Results & Data Vital Signs (Past 12 Hours) Vital Signs Temp Pulse Pulse Pulse Resp BP BP 02/14/25 07:41 36.3 C L 53 L 18 108/67 02/14/25 07:00 52 L 02/14/25 05:01 02/14/25 05:01 36.3 C L 51 L 16 102/63 02/14/25 04:44 56 L 02/14/25 04:00 50 L 14 94/55 L 02/14/25 03:30 55 L 12 109/59 L 02/14/25 03:00 57 L 15 108/58 L 02/14/25 02:46 50 L 20 105/56 L 02/14/25 02:00 50 L 18 99/57 L 02/14/25 01:30 53 L 18 124/60 02/14/25 01:17 50 L 18 127/61 02/14/25 01:17 52 L 02/14/25 01:11 02/14/25 01:10 02/14/25 00:59 36.8 C 58 L 19 127/75 Pulse Ox O2 Del Method 02/14/25 07:41 98 Room Air 02/14/25 07:00 02/14/25 05:01 Room Air 02/14/25 05:01 96 Room Air 02/14/25 04:44 02/14/25 04:00 98 Room Air 02/14/25 03:30 94 Room Air 02/14/25 03:00 95 Room Air 02/14/25 02:46 96 Room Air 02/14/25 02:00 97 Room Air 02/14/25 01:30 96 Room Air 02/14/25 01:17 96 Room Air 02/14/25 01:17 02/14/25 01:11 97 Room Air 02/14/25 01:10 97 Room Air 02/14/25 00:59 98 Room Air Laboratory Results Abnormal Lab Results 02/14/25 02/14/25 02/14/25 01:13 01:16 02:13 WBC 6.12 RBC 4.81 Hgb 13.5 L Hct 41.3 L MCV 85.9 MCH 28.1 MCHC 32.7 RDW Std Deviation 45.5 RDW Coeff of Yenifer 14.5 Plt Count 118 L MPV 11.8 Immature Gran % (Auto) 0.2 Neut % (Auto) 54.2 Lymph % (Auto) 29.9 Foster % (Auto) 11.8 Eos % (Auto) 3.4 Baso % (Auto) 0.5 Neut # (Auto) 3.32 Lymph # (Auto) 1.83 Foster # (Auto) 0.72 H Eos # (Auto) 0.21 Baso # (Auto) 0.03 Immature Gran # (Auto) 0.01 PT Cancelled 11.7 INR Cancelled 1.1 APTT Cancelled 37 H PTT Ratio Cancelled 1.4 VBG pH 7.48 H VBG pCO2 39 VBG pO2 63 VBG HCO3 29 VBG O2 Saturation 93.5 VBG Base Excess 5.2 Sodium 139 Potassium TNP 4.0 Chloride 106 Carbon Dioxide 29 Anion Gap 4 BUN 26 H Creatinine 1.31 Est Cr Clr Drug Dosing 36.4 eGFR 55.03 BUN/Creatinine Ratio 19.8 Glucose 121 H Lactate Calcium 10.3 Magnesium 2.0 Total Bilirubin 0.4 AST TNP 24 ALT 26 Alkaline Phosphatase 45 Troponin I High Sens 42.9 H 39.5 H B-Natriuretic Peptide 1336 H Total Protein 7.5 Albumin 4.4 Globulin 3.1 Albumin/Globulin Ratio 1.4 Procalcitonin Urine Color Urine Appearance Urine pH Ur Specific [place] Urine Protein Urine Glucose (UA) Urine Ketones Urine Blood Urine Nitrite Urine Bilirubin Urine Urobilinogen Ur Leukocyte Esterase 02/14/25 02/14/25 02/14/25 05:50 07:19 08:00 WBC RBC Hgb Hct MCV MCH MCHC RDW Std Deviation RDW Coeff of Yenifer Plt Count MPV Immature Gran % (Auto) Neut % (Auto) Lymph % (Auto) Foster % (Auto) Eos % (Auto) Baso % (Auto) Neut # (Auto) Lymph # (Auto) Foster # (Auto) Eos # (Auto) Baso # (Auto) Immature Gran # (Auto) PT INR APTT PTT Ratio VBG pH VBG pCO2 VBG pO2 VBG HCO3 VBG O2 Saturation VBG Base Excess Sodium Potassium Chloride Carbon Dioxide Anion Gap BUN Creatinine Est Cr Clr Drug Dosing eGFR BUN/Creatinine Ratio Glucose Lactate 0.7 Calcium Magnesium Total Bilirubin AST ALT Alkaline Phosphatase Troponin I High Sens 41.4 H B-Natriuretic Peptide Total Protein Albumin Globulin Albumin/Globulin Ratio Procalcitonin 0.07 Urine Color Yellow Urine Appearance Clear Urine pH 6.0 Ur Specific [place] 1.008 Urine Protein Negative Urine Glucose (UA) 2+ H Urine Ketones Negative Urine Blood Negative Urine Nitrite Negative Urine Bilirubin Negative Urine Urobilinogen Negative Ur Leukocyte Esterase Negative Diagnostic Findings Echocardiogram 02/14/2025: Severely reduced LV systolic function with ejection fraction of 20-25%. Dilated left ventricle with some dyskinesis of the apex. Mild mitral regurgitation. Moderate left atrial dilation. Chest x-ray obtained at time admission revealed cardiomegaly with vascular congestion. ECG Additional Comments: EKG demonstrated atrial fibrillation with demand ventricular pacing. PG Care Time/CCT Total # of Minutes Spent Total Time Spent with Patient: Total time spent is greater than 50% in coordination of care (as documented) at patient's floor/unit and/or counseling patient: Coding Level of Care Code 85671 INT INP/OBS CARE 3/75MIN Diagnoses Heart failure, systolic, with acute decompensation I50.23 Elevated troponin R79.89 CAD (coronary artery disease) I25.10 Atrial fibrillation I48.91 Mitral regurgitation I34.0 Dyspnea R06.00 Bradycardia R00.1 CPT Codes Implantable Defib Single Lead Programming - 14509 ([id number]) 26 - PROFESSIONAL COMPONENT
--- NOTE | 2025-02-14 14:13 | Electrocardiogram Report ---
Test Reason : Blood Pressure : */* mmHG Vent. Rate : 53 BPM Atrial Rate : * BPM P-R Int : * ms QRS Dur : 112 ms QT Int : 452 ms P-R-T Axes : * -46 -89 degrees QTcB Int : 424 ms Atrial fibrillation with slow ventricular response with frequent ventricular-paced complexes Left axis deviation Inferior infarct , age undetermined Anterolateral infarct , age undetermined Abnormal ECG No previous ECGs available Confirmed by Serge Kimble ([id number]) on 02/14/2025 2:12:42 PM Referred By: REFERRED SELF Confirmed By: Serge Kimble
--- NOTE | 2025-02-14 16:58 | Discharge Summary ---
Discharge Summary Date of Service February 14, 2025 Principal Dx & Hospital Course #1 = Principal Diagnosis (1) Congestive heart failure: (2) Hypertension: (3) Hyperlipidemia: (4) Atrial fibrillation: (5) CAD (coronary artery disease): Plan 79 years old male with PMH of FULL CODE @ home, HTN, CAD s/p CABG and stenting, cardiac arrest and paroxysmal AFIB, s/p AICD, MV replacement, and chronic systolic CHF with reduced LVEF with dry baseline weight of 136-140 pounds at home, 1 pillow orthopnea on a reclining/adjustable home bed, not hospital bed, and no paroxysmal nocturnal dyspnea or platypnea, followed by CARDS Service @ [facility] ([place], [place]), who presented to [facility] ER on 02/14/2025 with complaints of SOB at rest, YOUNG, and lightheadedness. Patient also reported episodes of bradycardia during the night with HR at times into the 30 beats/minute range. Patient was subsequently placed in OBSERVATION on the hospitalist service @ [facility] on 02/14/2025 with the following diagnosis: 1. Acute exacerbation of chronic systolic CHF with reduced LVEF with dry baseline weight of 136-140 pounds at home. The following medical issues were addressed while the patient remained in [facility] on 02/14/2025: #Acute exacerbation of chronic systolic CHF with reduced LVEF with dry baseline weight of 136-140 pounds at home. - RESOLVING very well after having received lasix 40mg IV x 1 dose (02/14/2025, 2:46am) in [facility] ER. Patient was subsequently continued on his home-scheduled 2 gram Na diet, daily weights, strict I/O, lasix 20mg PO qam (administered on 02/14/2025, 7:39am), sacubitril 24mg - valsartan 26mg PO bid (administered on 02/14/2025, 7:39am), spironolactone 12.5mg PO qam (administered on 02/14/2025, 8:16am), and empagliflozin 12.5mg PO daily (administered on 02/14/2025, 10:02am). Patient did not receive his home-scheduled metoprolol succinate 100mg PO bid while in [facility] given resting heart rate 50-58 bpm (02/14/2025, 12:59am - 3:20pm). Patient remains asymptomatic, and hence, patient may resume his home-scheduled metoprolol succinate 100mg PO bid on hospital discharge back to home on 02/14/2025. Patient also did not receive his home-scheduled isosorbide mononitrate 30mg PO qam while in [facility] given resting BP 99/57 (02/14/2025, 2:00am) to BP 92/57 (02/14/2025, 3:20pm). Patient remains asymptomatic, and hence, patient may resume his home-scheduled isosorbide mononitrate 30mg PO qam on hospital discharge back to home on 02/14/2025. Patient will follow up with his new CARDS Dr. Dmitriy Marie within 5 days of hospital discharge. cf., TTE (02/14/2025, 4:58am): 1. LVEF 20-25%. Septal motion consistent with conduction abnormality. Severe global hypokinesis of LV. Apical dyskinesis. 2. RV normal size. PPM lead in RV. 3. LA moderately dilated. RA not well visualized. 4. No /AR. 5. Trace [place]. 6. Mild MR. Posterior mitral leaflet thickened and fixed consistent with prior mitral repair surgery. 7. Mild TR with RVSP normal. 8. Aortic root normal size. Normal IVC diameter and respiratory variation suggests normal CVP. 9. No pericardial effusion. (as per CARDS Dr. Serge Kimble). #Atrial Fibrillation - with ICD in place. -Continue Apixaban 5mg PO bid -Held off home-scheduled metoprolol succinate 100mg PO bid while in [facility] given resting heart rate 50-58 bpm (02/14/2025, 12:59am - 3:20pm). Patient remains asymptomatic, and hence, patient may resume his home- scheduled metoprolol succinate 100mg PO bid on hospital discharge back to home on 02/14/2025. #Anxiety -Asymptomatic on home-scheduled clonazepam 0.25mg po daily PRN anxiety. Patient will continue this home-scheduled medication on hospital discharge back to home on 02/14/2025. #Hyperlipidemia -Continue home-scheduled ezetemibe 10mg PO qhs and rosuvastatin 40mg PO qhs while in [facility] and on hospital discharge back to home on 02/14/2025. Admission HPI Per Admitting Provider Mr. De Rogesr is a pleasant 79yo male with history of Sudden Cardiac s/p AICD placement, CAD s/p CABG with subsequent stenting, Mitral valve repair, Atrial Fibrillation and HTN presenting with shortness of breath and lightheadedness intermittent for the last several days. Patient recently moved here from [place]. He is establishing with Cardiology and is scheduled to see them on 05/01/2025. Patient reports that for the last several days he has been having episodes of SOB as well as lightheadedness. He feels that his HR is dropping during the night - as low as 38bpm. He denies weight gain, edema or orthopnea. Has had some PND. Patient reports he had his pacemaker battery replaced 2 months ago. No additional complaints at this time. In the ER patient with paced rhythm ER Course: Lasix 40mg IV Discharge Exam Constitutional General: Comfortable, coherent, and cooperative. Wide awake and alert. Not confused, lethargic, or obtunded. Patient speaks in complete, fluent, and articulate sentences without pause, interruption, cough, or wheeze. HEENT: Normocephalic, atraumatic. No nystagmus, gaze paresis, anisocoria, miosis, mydriasis, hyphema, scleral injection, conjunctivitis, or pterygium. No otorrhea or rhinorrhea. No pharyngeal erythema, edema, or discharge. Neck: Supple, no stridor, bruit, goiter, or hepato-jugular reflux. Jugular venous pressure is estimated to be 3 cm above the sternal angle of Jonathan, which in turn, is 5 cm above the level of the right atrium; with jugular venous pressure estimated to be 8 cm, then, there is no jugular venous distention on 02/14/2025. Lymphatics: No cervical (anterior/posterior), supraclavicular, infraclavicular, axillary, epitrochlear, or inguinal adenopathy. Chest: Symmetric rise and fall with respirations. Non-tender to palpation. Lungs: Clear to auscultation and percussion. Heart: Regular rate and rhythm. S1 and S2 noted. No S3 or S4 summation gallop. No tripartite friction rub. Grade II/ early systolic murmur @ LLSB without radiation to the carotids, axilla, or back, and which remains invariant in regards to the respiratory cycle. Abdomen: Soft, non-tender, non-distended. No rebound, guarding, Arrington's sign, or organomegaly. Bowel sounds auscultated in all 4 quadrants. Extremities: No clubbing, cyanosis, or edema. 2+ pedal pulses bilaterally. Skin: No decubitus ulcer, exanthem, or enanthem. Genito-urinary: No urethral discharge. No galindo catheter. Patient utilizes urinal independently. Neurology: Alert and oriented in regards to person, place, time, and situation. DTR+ and symmetric. 5/5 motor strength in all 4 extremities, both proximally and distally. No pronator drift. No facial droop. No dysarthria. Psychiatry: No homicidal ideation. No suicidal ideation. No flat affect; smiles appropriately. Discharge Plan Discharge Items Patient Disposition: Home - Self-Care Reason For Visit: SOB Discharge Diagnosis: Acute exacerbation of chronic systolic CHF Condition on Discharge: Fair Activity: Resume your previous activity Lifting: Gradually increase as tolerated Bathing: No limitations Sexual Activity: When tolerated Exercise/Sports: Gradually increase as tolerated Weightbearing: Full weightbearing Non-emergency contact: Primary Care Provider Call non-emergency contact if: you have any medication questions Follow-up/Referrals: Dmitriy Marie MD [Physician] - PCP,NO [Primary Care Provider] - Diet: Heart Healthy, Low Fat and Low Sodium (2gm) Addtl Attending Provider Instructions: See your CARDS Dr. Dmitriy Marie within 5 days of hospital discharge. Pending Studies at Discharge: No Stand-Alone Forms: [employer], Smoking Cessation Medications and DC Order Prescriptions: Continued metoprolol succinate 100 mg tablet extended release 24 hr 100 mg PO BID furosemide 20 mg tablet 20 mg PO QAM ezetimibe 10 mg tablet 10 mg PO HS rosuvastatin 40 mg tablet 40 mg PO HS isosorbide mononitrate 30 mg tablet extended release 24 hr 30 mg PO QAM spironolactone 25 mg tablet 12.5 mg PO QAM Eliquis 5 mg Tablet 5 mg PO BID Jardiance 25 mg Tablet 12.5 mg PO QAM Entresto 24-26 mg Tablet 1 tab PO BID nitroglycerin [Nitrostat] 0.4 mg Tablet, Sublingual 0.4 mg sublingual UD PRN (Reason: Chest Pain) clonazepam 0.5 mg Tablet 0.25 mg PO DAILY PRN (Reason: Anxiety) Centrum Silver Men [id number] mcg Tablet 1 tab PO DAILY Discharge Orders: Discharge Order (Routine); Ordered 02/14/25 Ordered By: Orion Roche Discharge Order- CHF (Routine); Ordered 02/14/25 Ordered By: Orion Roche Admission Data Admit Date/Time: 02/14/25 02:52 Attending Provider: Orion Roche Admit Provider: Sapna Stark Primary Care Provider: PCP,NO Other Providers: Dmitriy Marie; Sapna Stark Other Interventions: Discharge Summary Assessment (RN) Last Done: 02/14/25 15:20 Hospital Stay Data Consultations 02/14/25 02:42 ED Decision to Admit Stat 02/14/25 02:52 Consult Cardiology Routine Pending Results Patient Have Any Pending Studies at Discharge: No Discharge Instructions Given to Patient (Per Discharging Provider) See your CARDS Dr. Dmitriy Marie within 5 days of hospital discharge. Total Time Total Time Spent Total Time Spent (In Minutes): 36 minutes. Of this time period, 19 minutes were spent in coordinating patient's discharge. Coding Level of Care Code 11112 INP/OBS DISCH >30 MIN Diagnoses Congestive heart failure I50.9 Heart failure chronicity: acute Heart failure type: unspecified Hypertension I10 Hyperlipidemia E78.5 Atrial fibrillation I48.91 CAD (coronary artery disease) I25.10
[2025-02-14] MEDS ORDERED: ROSUVASTATIN CALCIUM 20 MG TAB PO SCH (21:00)
[2025-02-14] MEDS ORDERED: EZETIMIBE 10 MG TAB PO SCH (21:00)
== END 2025-02-14 17:17 | disposition home or self-care (01) ==
LOC: 2N 00:56 → ED 00:56 → SUATTDRO 02:52 → 2N 04:25

== ENCOUNTER 2025-07-06 17:38 | Observation (INO) ==
--- NOTE | 2025-07-06 18:31 | Emergency Department Note ---
History of Present Illness General Chief complaint: Cardiac Assessment Stated complaint: LIGHT HEADED ON TREADMILL AND AFTER Time Seen by Provider: 07/06/25 18:05 History of Present Illness Patient is an 79-year-old male with past medical history significant for CHF, cardiomyopathy, coronary artery disease status post CABG and stenting, mitral valve repair, atrial fibrillation on Eliquis, hypertension, ICD in place, who presents to the emergency department accompanied by his son for evaluation of lightheadedness, fatigue, chest pain and shortness of breath that started this afternoon. Patient states that he went to the gym around 1330. He was just getting started on the treadmill, had only been walking for about a minute, when he began to feel profoundly lightheaded. He states he "felt like he might pass out." He stopped exercising, and left the gym and went home. When he got home, he felt excessively fatigued, states he could not keep his eyes open, he felt a little short of breath, with continued lightheadedness, mild chest pain, heart racing and a slight headache. He did go visit his who is in a memory care unit, and while there asked staff to check his blood pressure, they recorded 150/80 which is high for the patient. He was fasting for morning blood work today so did not have breakfast until 1130 today, has not had anything else to eat, has been drinking water throughout the day. He has otherwise been compliant with his medications. 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 Home Medications Medication Instructions Recorded Confirmed Type apixaban 5 mg tablet (Eliquis) 5 mg PO BID 02/14/25 07/06/25 History clonazepam 0.5 mg tablet 0.25 mg PO DAILY PRN Anxiety 02/14/25 07/06/25 History empagliflozin 25 mg tablet 25 mg PO QAM 02/14/25 07/06/25 History (Jardiance) ezetimibe 10 mg tablet 10 mg PO HS 02/14/25 07/06/25 History furosemide 20 mg tablet 20 mg PO QAM 02/14/25 07/06/25 History isosorbide mononitrate 30 mg 30 mg PO QAM 02/14/25 07/06/25 History tablet,extended release 24 hr metoprolol succinate 100 mg 100 mg PO AMPM 02/14/25 07/06/25 History tablet,extended release 24 hr xdurucwi-jy-lhebf 300 mcg-K 60 1 tab PO QAM 02/14/25 07/06/25 History mcg-lycop 600 mcg-lutein 300 mcg tablet (Centrum Silver Men) nitroglycerin 0.4 mg sublingual 0.4 mg sublingual UD PRN Chest Pain 02/14/25 07/06/25 History tablet (Nitrostat) rosuvastatin 40 mg tablet 40 mg PO HS 02/14/25 07/06/25 History sacubitril 24 mg-valsartan 26 mg 1 tab PO BID 02/14/25 07/06/25 History tablet (Entresto) spironolactone 25 mg tablet 25 mg PO QAM 02/14/25 07/06/25 History peg 3350-electrolytes 236 240 ml PO Q10M #4,000 mL 07/05/25 07/06/25 Rx gram-22.74 gram-6.74 gram-5.86 gram solution (GaviLyte-G) Allergies Allergy/AdvReac Type Severity Reaction Status Date / Time No Known Allergies Allergy Unverified 06/11/25 15:05 Past Med/Surg History Problem List (Updated 07/06/25 @ 22:50 by Reuben Webb) Elevated troponin (Acute) Palpitations (Acute) Shortness of breath (Acute) Precordial chest pain (Acute) Heart attack Pacemaker Heart disease Hemorrhoids that prolapse with straining, but retract spontaneously ICD (implantable cardioverter-defibrillator) in place Cardiomyopathy HFrEF (heart failure with reduced ejection fraction) Medical History Hx of blood clots Bradycardia Dyspnea Mitral regurgitation Heart failure, systolic, with acute decompensation Atrial fibrillation Elevated troponin Congestive heart failure Hyperlipidemia Hypertension 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 CAD (coronary artery disease) s/p CABG, stenting Surgical History Hx of colonoscopy History of coronary artery stent placement between 1987 and 2018 History of mitral valve replacement History of heart bypass surgery 2019 History of cardiac defibrillator placement Family History Father Coronary heart disease Heart disease Sister Breast cancer Social History Smoking Status: Former smoker Tobacco Type: Cigarettes Age Started Using Tobacco: 23; Age Quit Using Tobacco: 28; packs per day: 0.25; Cigarettes Per Day: 1; Do You Dip or Chew Tobacco: No; Hx Alcohol Use: Yes Alcohol type: wine Alcohol Intake Frequency: 2-3 x/Week Hx Substance Use: No Preferred Language: Bangladeshi Communication Ability: Effective Meatcutter Required: No Beliefs That Will Affect Care: None marital status: Current Living Situation: Spouse current occupational status: retired Feels Safe at Home: Yes Assistive Devices: None Review of Systems A total of 10 systems reviewed and were otherwise negative Physical Exam Vital Signs Vital Signs - 24 hr 07/06/25 17:40 07/06/25 17:40 07/06/25 17:58 Temperature 36.6 C Temperature Source Temporal Artery Scan Pulse Rate 55 L Pulse Rate [Apical] 52 L Pulse Rate from SpO2 Sensor Pulse Rhythm [Apical] Regular Pulse Strength [Apical] Normal Respiratory Rate 18 14 Respiratory Effort / Characteristics Non-Labored Spontaneous Respiratory Depth Normal Respiratory Pattern Regular Blood Pressure 133/73 Blood Pressure [Right Arm] 128/74 Blood Pressure Mean 93 Blood Pressure Mean [Right Arm] 92 Blood Pressure Position [Right Arm] Lying Pulse Oximetry 100 96 Oxygen Delivery Method Room Air Room Air Sepsis Recent Fever Within 48 Hours No Sepsis New/Unexplained Change in Mental Status N/A Sepsis Action Taken by Nursing No Action Required 07/06/25 18:04 07/06/25 18:48 07/06/25 19:12 Temperature Temperature Source Pulse Rate 50 L 53 L Pulse Rate [Apical] Pulse Rate from SpO2 Sensor 54 L Pulse Rhythm [Apical] Pulse Strength [Apical] Respiratory Rate 15 Respiratory Effort / Characteristics Respiratory Depth Respiratory Pattern Blood Pressure Blood Pressure [Right Arm] 99/72 L Blood Pressure Mean Blood Pressure Mean [Right Arm] 81 Blood Pressure Position [Right Arm] Lying Pulse Oximetry 100 Oxygen Delivery Method Room Air Sepsis Recent Fever Within 48 Hours Sepsis New/Unexplained Change in Mental Status Sepsis Action Taken by Nursing 07/06/25 20:30 07/06/25 20:42 Temperature Temperature Source Pulse Rate 59 L Pulse Rate [Apical] Pulse Rate from SpO2 Sensor 58 L Pulse Rhythm [Apical] Pulse Strength [Apical] Respiratory Rate 27 H Respiratory Effort / Characteristics Respiratory Depth Respiratory Pattern Blood Pressure 109/77 Blood Pressure [Right Arm] Blood Pressure Mean 93 Blood Pressure Mean [Right Arm] Blood Pressure Position [Right Arm] Pulse Oximetry 99 Oxygen Delivery Method Room Air Sepsis Recent Fever Within 48 Hours Sepsis New/Unexplained Change in Mental Status Sepsis Action Taken by Nursing CONSTITUTIONAL: Patient is a pleasant, well-appearing 79-year-old male who is awake and alert laying on the gurney in no acute distress. His son is at the bedside. EYES: Pupils equal, round, reactive to light and accommodation. EOMs intact without nystagmus. Sclera are anicteric. ENT: Tympanic membranes intact, with normal landmarks. External canals are clear. Oral and nasopharynx are clear. Mucous membranes are moist, no lesions, tongue and gums appear normal. CARDIOVASCULAR: Regular rate and rhythm. Peripheral pulses easily palpable. RESPIRATORY: Breath sounds equal and clear to auscultation. ABDOMEN: Bowel sounds are present. The abdomen is soft, nontender, nondistended. No guarding or rebound. INTEGUMENTARY: No lesions or rash, normal skin turgor. LYMPH: No lymphadenopathy. Course Course The patient was seen and assessed as above. External medical records are reviewed. He presents to the emergency department for evaluation of an episode of dizziness, fatigue and near syncope with chest pain and shortness of breath that occurred earlier this afternoon. He has an extensive cardiac history. IV lock was initiated. Laboratory studies collected including CBC with differential, CMP, coags, magnesium and troponin x 2. He was observed in the pvc monitor. EKG and chest x-ray were obtained. Pacemaker was interrogated. Diagnostics, as interpreted by me: Laboratory studies: Normal white count at 6000 and, H&H 14 and 42, INR not elevated. No significant electrolyte imbalance, no ANGELO, no transaminitis. Initial troponin 23.9 troponin 23.7 chronic and stable appearing for the patient. ECG: Paced rhythm, 54 bpm, no acute ischemic changes. Cardiac monitoring: An order was placed for continuous cardiac monitoring. The monitor shows a paced rhythm at 50 bpm per my interpretation. Imaging studies: Chest x-ray clear, no infiltrate, no consolidation. No failure. Pacemaker was interrogated, per interrogation report, patient had a 21-second run of ventricular tachycardia, which required ATP. All laboratory and diagnostic imaging studies reviewed with attending physician, Dr. Martin, and discussed with the patient and his son at length. I do feel that further inpatient care is warranted and he was agreeable. [facility] and [facility] with Dr. Stark. Chronic conditions affecting care: CHF, valvular heart disease, cardiomyopathy, ICD in place, CAD, atrial fibrillation on Eliquis, diabetes, among others. Differential diagnosis: acute myocardial infarction, acute coronary syndrome, myocarditis, pericarditis, pericardial effusions /tamponade, esophageal perforation, pulmonary embolism, pneumonia, pneumothorax, cardiomyopathy, congestive heart failure, anemia , COPD/asthma exacerbation, musculoskeletal, anxiety, costochondritis,. Medical Decision Making Differential Diagnosis See ED course Medical Records Attestation: I reviewed the patient's medical records. Home Medications Current Medication List: was personally reviewed by me Laboratory Data Attestation: I reviewed the patient's lab results. 07/06/25 18:01 07/06/25 18:01 Lab Results 07/06/25 07/06/25 Range/Units 18:01 20:17 WBC 6.06 (4.8-10.8) K/ul RBC 4.88 (4.70-6.10) M/uL Hgb 14.2 (14.0-18.0) g/dl Hct 42.9 (42.0-52.0) % MCV 87.9 (80.0-100.0) fL MCH 29.1 (25.0-34.0) pg MCHC 33.1 (32.0-36.0) g/dL RDW Std Deviation 47.2 H (36.4-46.3) fL RDW Coeff of Yenifer 14.6 H (11.5-14.5) % Plt Count 126 L (130-400) K/uL MPV 11.9 (9.4-12.4) fL Immature Gran % (Auto) 0.2 % Neut % (Auto) 58.4 % Lymph % (Auto) 27.6 % Shoshone % (Auto) 10.6 % Eos % (Auto) 2.5 % Baso % (Auto) 0.7 % Neut # (Auto) 3.55 (1.40-6.50) K/uL Lymph # (Auto) 1.67 (1.20-3.40) K/uL Shoshone # (Auto) 0.64 H (0.11-0.59) K/uL Eos # (Auto) 0.15 (0.00-0.50) K/uL Baso # (Auto) 0.04 (0.00-0.20) K/uL Immature Gran # (Auto) 0.01 (0.01-0.20) K/uL PT 11.4 (9.0-12.0) Seconds INR 1.1 (0.9-1.1) APTT 35 H (21-31) Seconds PTT Ratio 1.3 Sodium 138 (136-145) mmol/L Potassium 4.5 (3.5-5.1) mmol/L Chloride 104 (98-107) mmol/L Carbon Dioxide 29 (21-32) mmol/L Anion Gap 5 (3-11) BUN 25 H (6-23) mg/dl Creatinine 1.36 (0.6-1.4) mg/dl Est Cr Clr Drug Dosing 42.2 ml/min eGFR 52.61 BUN/Creatinine Ratio 18.4 (10-20) Glucose 90 (70-99(Fasting)) mg/dl Calcium 10.3 (8.6-10.3) mg/dl Magnesium 2.2 (1.7-2.4) mg/dl Total Bilirubin 0.5 (0.2-1.0) mg/dl AST 28 (13-39) U/L ALT 31 (7-52) U/L Alkaline Phosphatase 55 (34-104) U/L Troponin I High Sens 23.9 H 23.7 H (0-20) pg/ml Total Protein 8.1 (6.0-8.3) gm/dl Albumin 4.5 (3.4-5.0) gm/dl Globulin 3.6 (2.5-4.0) gm/dl Albumin/Globulin Ratio 1.3 (0.9-2) Imaging Data Attestation: I personally reviewed and interpreted this imaging study as follows: Radiologist's Impression: Chest X-Ray 07/06/25 18:27 Chest radiograph, one view History: Chest pain Comparison: None Findings: Single AP view of the chest performed. No focal consolidation or pleural effusion. No pneumothorax. The heart is significantly enlarged. Coronary stents and CABG changes seen. Left chest wall AICD. Median sternotomy wires intact. Normal pulmonary vascularity. No evidence for lymphadenopathy. No visualized bony or soft tissue abnormality. Impression: No acute process Electronically signed by Serge Preciado 07-06-2025 6:58 PM MDM Narrative See ED course Impression & Plan Precordial chest pain, Shortness of breath, Palpitations, Elevated troponin Discharge Plan Visit Data Chief Complaint: Cardiac Assessment Stated Complaint: LIGHT HEADED ON TREADMILL AND AFTER ED Provider: Liliana Martin ED Midlevel Provider: Reuben Webb Discharge Problem: Precordial chest pain, Shortness of breath, Palpitations, Elevated troponin Patient Disposition: Being Evaluated by Hospitalist Condition: Fair Forms Stand Alone Forms: [facility] [employer] Prescriptions Prescriptions: No Action peg 3350-electrolytes [GaviLyte-G] 236-22.74-6.74 -5.86 gram recon soln 240 ml PO Q10M Qty: 4000 0RF Rx Instructions: until fecal effluent is clear metoprolol succinate 100 mg tablet extended release 24 hr 100 mg PO AMPM furosemide 20 mg tablet 20 mg PO QAM ezetimibe 10 mg tablet 10 mg PO HS rosuvastatin 40 mg tablet 40 mg PO HS isosorbide mononitrate 30 mg tablet extended release 24 hr 30 mg PO QAM spironolactone 25 mg tablet 25 mg PO QAM Eliquis 5 mg Tablet 5 mg PO BID Jardiance 25 mg Tablet 25 mg PO QAM sacubitril-valsartan [Entresto] 24-26 mg Tablet 1 tab PO BID nitroglycerin [Nitrostat] 0.4 mg Tablet, Sublingual 0.4 mg sublingual UD PRN (Reason: Chest Pain) clonazepam 0.5 mg Tablet 0.25 mg PO DAILY PRN (Reason: Anxiety) Centrum Silver Men [id number] mcg Tablet 1 tab PO QAM Referrals Referrals: Issa Ellis MD [Primary Care Provider] -
[2025-07-06 18:38] LABS: Hematocrit (blood only) 42.9 % (42.0-52.0); Hemoglobin 14.2 g/dl (14.0-18.0); Immature Granulocytes # (auto) 0.01 K/uL (0.01-0.20); Immature Granulocytes % (auto) 0.2 %; Mean Corpuscular Hemoglobin 29.1 pg (25.0-34.0); Mean Corpuscular Volume 87.9 fL (80.0-100.0); Platelet Count 126 K/uL (130-400); RDW Standard Deviation 47.2 fL (36.4-46.3); Red Blood Count 4.88 M/uL (4.70-6.10); White Blood Count 6.06 K/ul (4.8-10.8)
[2025-07-06 18:44] LABS: Alanine Aminotransferase 31.0 U/L (7-52); Albumin Globulin Ratio 1.3 (0.9-2); Albumin Level 4.5 gm/dl (3.4-5.0); Alkaline Phosphatase 55.0 U/L (34-104); Anion Gap 5.0 (3-11); Bilirubin,Total 0.5 mg/dl (0.2-1.0); Blood Urea Nitrogen 25.0 mg/dl (6-23); Calcium 10.3 mg/dl (8.6-10.3); Carbon Dioxide 29.0 mmol/L (21-32); Chloride 104.0 mmol/L (98-107); Creatinine Clr Calc Pharmacy 42.2 ml/min; Globulin 3.6 gm/dl (2.5-4.0); Glucose 90.0 mg/dl (70-99(Fasting)); Magnesium 2.2 mg/dl (1.7-2.4); Potassium 4.5 mmol/L (3.5-5.1); Sodium 138.0 mmol/L (136-145); Total Protein 8.1 gm/dl (6.0-8.3)
--- NOTE | 2025-07-06 18:59 | XRay Report ---
Chest radiograph, one view History: Chest pain Comparison: None Findings: Single AP view of the chest performed. No focal consolidation or pleural effusion. No pneumothorax. The heart is significantly enlarged. Coronary stents and CABG changes seen. Left chest wall AICD. Median sternotomy wires intact. Normal pulmonary vascularity. No evidence for lymphadenopathy. No visualized bony or soft tissue abnormality. Impression: No acute process Electronically signed by Serge Preciado 07-06-2025 6:58 PM
[2025-07-06 19:09] LABS: INR 1.1 (0.9-1.1); Partial Thromboplastin Time 35 Seconds (21-31); Prothrombin Time 11.4 Seconds (9.0-12.0)
--- NOTE | 2025-07-06 21:55 | History & Physical Report ---
Date of Service July 06, 2025 Assessment & Plan (1) Nonsustained ventricular tachycardia: (2) Palpitations: (3) HFrEF (heart failure with reduced ejection fraction): (4) Hypertension: (5) Hyperlipidemia: (6) Atrial fibrillation: (7) CAD (coronary artery disease): Plan 79-year-old male with history of coronary artery disease, heart failure with reduced ejection fraction, atrial fibrillation, mitral valve repair, sudden cardiac with AICD in place presenting with episode of exertional palpitations, lightheadedness and fatigue. #Nonsustained ventricular tachycardia/Palpitationspatient symptoms of exertional palpitations, lightheadedness and fatigue corresponded with episode of nonsustained ventricular tachycardia noted on pacemaker interrogation. This episode occurred at 14:00 and lasted approximately 21 beats. He was then paced out. Denies AICD discharge. Presently with no additional palpitations, dizziness or chest pain. Patient appears to be well-hydrated, electrolytes are within normal limits, he denies ischemic symptoms preceding this event. He does have a minimal elevation in troponin at 23.7 currently Admit to medical with telemetry Gentle fluids with LR at 80mL/hr x 500mL Monitor electrolytes and replete as needed Repeat troponin in the morning Cardiology consultation appreciated #Heart failure with reduced ejection fractionlast echocardiogram from 02/14/2025 reveals left ventricular systolic function severely reduced estimated to be 20 to 25%. Moderately dilated LV, LA. Posterior mitral leaflet is thickened and fixed consistent with prior mitral valve repair surgery. Mild mitral regurgitation. Patient appears to be compensated at this time. Does not endorse symptoms of failure. Continue metoprolol 100 mg p.o. twice daily Continue Entresto twice daily Continue isosorbide mononitrate 30 mg p.o. every morning Continue Jardiance 25 mg p.o. every morning Continue Lasix 20 mg p.o. every morning Continue spironolactone 25 mg p.o. every morning #Atrial fibrillationpatient with paced rhythm. Anticoagulated on Eliquis Continue Eliquis 5 mg p.o. twice daily. Patient was given dose this evening #Hypertensionblood pressure appropriate Continue medications as above #Hyperlipidemia Continue Crestor 40 mg p.o. nightly and Zetia 10 mg p.o. nightly History of Present Illness Chief Complaint: dizziness, near syncope Primary Care Provider: Issa Ellis MD De Rogers is an 79-year-old male with extensive cardiac history presenting with episode of palpitations, lightheadedness and near syncope. Patient with history of of coronary artery disease status post CABG in the 80s. [id number] cardiac arrest in 2002 resulting in implantation of single- chamber ICD. Status post open mitral valve repair as well as subsequent stenting of coronary arteries. he has atrial fibrillation as well as heart failure with reduced ejection fraction, hypertension and hyperlipidemia. Patient is overall very active and doing well at home. He exercises several times weekly on a treadmill. This afternoon around 1330 he got to the gym and started walking on the treadmill. Shortly after he felt palpitations, lightheadedness and near syncope. He states that he felt overwhelmingly fatigued so he decided to go home. He continued to feel tired at home. He did go to [facility] to visit his and ask staff to check his blood pressure. Blood pressure 150/83 at [facility]. Patient had another brief episode of palpitations and lightheadedness which quickly resolved. Given his ongoing symptoms he decided to come to the emergency room. He reports having a brief episode of chest tightness while in the ER that resolved spontaneously. Otherwise no additional complaints. Denies fever, chills, shortness of breath, cough, abdominal pain, nausea, vomiting, diarrhea. Allergies Allergy/AdvReac Type Severity Reaction Status Date / Time No Known Allergies Allergy Unverified 06/11/25 15:05 Home Medications Medication Instructions Recorded Confirmed Type apixaban 5 mg tablet (Eliquis) 5 mg PO BID 02/14/25 07/06/25 History clonazepam 0.5 mg tablet 0.25 mg PO DAILY PRN Anxiety 02/14/25 07/06/25 History empagliflozin 25 mg tablet 25 mg PO M 02/14/25 07/06/25 History (Jardiance) ezetimibe 10 mg tablet 10 mg PO HS 02/14/25 07/06/25 History furosemide 20 mg tablet 20 mg PO [facility] 02/14/25 07/06/25 History isosorbide mononitrate 30 mg 30 mg PO [facility] 02/14/25 07/06/25 History tablet,extended release 24 hr metoprolol succinate 100 mg 100 mg PO AMPM 02/14/25 07/06/25 History tablet,extended release 24 hr fhwgannr-fl-mjmqb 300 mcg-K 60 1 tab PO [facility] 02/14/25 07/06/25 History mcg-lycop 600 mcg-lutein 300 mcg tablet (Centrum Silver Men) nitroglycerin 0.4 mg sublingual 0.4 mg sublingual UD PRN Chest Pain 02/14/25 07/06/25 History tablet (Nitrostat) rosuvastatin 40 mg tablet 40 mg PO HS 02/14/25 07/06/25 History sacubitril 24 mg-valsartan 26 mg 1 tab PO BID 02/14/25 07/06/25 History tablet (Entresto) spironolactone 25 mg tablet 25 mg PO QAM 02/14/25 07/06/25 History peg 3350-electrolytes 236 240 ml PO Q10M #4,000 mL 07/05/25 07/06/25 Rx gram-22.74 gram-6.74 gram-5.86 gram solution (GaviLyte-G) Past Med/Surg History Problem List (Updated 07/07/25 @ 02:29 by Sapna Stark DO) Nonsustained ventricular tachycardia Elevated troponin (Acute) Palpitations (Acute) Shortness of breath (Acute) Precordial chest pain (Acute) Heart attack Pacemaker Heart disease Hemorrhoids that prolapse with straining, but retract spontaneously ICD (implantable cardioverter-defibrillator) in place Cardiomyopathy HFrEF (heart failure with reduced ejection fraction) Medical History Hx of blood clots Bradycardia Dyspnea Mitral regurgitation Heart failure, systolic, with acute decompensation Atrial fibrillation Elevated troponin Congestive heart failure Hyperlipidemia Hypertension 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 CAD (coronary artery disease) s/p CABG, stenting Surgical History Hx of colonoscopy History of coronary artery stent placement between 1988 and 2018 History of mitral valve replacement History of heart bypass surgery 2019 History of cardiac defibrillator placement Family History Father Coronary heart disease Heart disease Sister Breast cancer Social History Smoking Status: Former smoker Tobacco Type: Cigarettes Age Started Using Tobacco: 23; Age Quit Using Tobacco: 28; packs per day: 0.25; Cigarettes Per Day: 1; Smoking End Date: over 50 years ago; Second Hand Exposure: No; Do You Dip or Chew Tobacco: No; Hx Alcohol Use: Yes Alcohol type: wine Alcohol Intake Frequency: 2-3 x/Week Hx Substance Use: No Preferred Language: Palauan Communication Ability: Effective Informatics Specialist Required: No Beliefs That Will Affect Care: None marital status: Current Living Situation: Alone Current Living Situation Comment: lives alone, in memory care facility current occupational status: retired Other Information That Helps Us Care for You: No Feels Safe at Home: Yes Safety Concerns: Feels Safe At This Time Assistive Devices: Glasses and Hearing Aid - Bilateral Review of Systems Review of Systems: All systems reviewed & are unremarkable except as noted in HPI & below Physical Exam Physical Exam: General: patient resting comfortably, NAD, non-toxic in appearance, AA&O x 4 Skin: warm, dry, intact, no rashes or lesions HEENT: NC/AT, PERRL, EOMI, anicteric sclera, conjunctiva without injection, external ear normal to inspection and nontender, nares patent, moist mucus membranes, dentition intact, no oropharyngeal lesions, neck supple, trachea midline, no LAD, no thyromegaly, no JVD Heart: +S1/S2, regular, bradycardic, 3/6 TONY at apex, no rubs/gallops, monitor with possible junctional rhythm, occasional paced beats Lungs: equal air entry bilaterally, no rales/rhonchi/wheezes Abd: +BS, soft, NT/ND, no masses/organomegaly/ascites Ext: warm, 2+ pulses in UE/LE bilaterally, no clubbing/cyanosis or edema Neuro: nonfocal, patient AA&O x 4, speech intact, no facial droop, moving all extremities on command with equal strength 5/5 Results & Data Results & Data Vital Signs (Past 12 Hours) Vital Signs Temp Pulse Pulse Resp BP BP Pulse Ox 07/06/25 20:42 59 L 27 H 99 07/06/25 20:30 109/77 07/06/25 19:12 99/72 L 07/06/25 18:48 53 L 15 100 07/06/25 18:04 50 L 07/06/25 17:58 52 L 14 128/74 96 07/06/25 17:40 07/06/25 17:40 36.6 C 55 L 18 133/73 100 O2 Del Method 07/06/25 20:42 Room Air 07/06/25 20:30 07/06/25 19:12 07/06/25 18:48 Room Air 07/06/25 18:04 07/06/25 17:58 Room Air 07/06/25 17:40 Room Air 07/06/25 17:40 Laboratory Results Laboratory Results WBC 6.06 K/ul (4.8-10.8) 07/06/25 18:01 RBC 4.88 M/uL (4.70-6.10) 07/06/25 18:01 Hgb 14.2 g/dl (14.0-18.0) 07/06/25 18:01 Hct 42.9 % (42.0-52.0) 07/06/25 18:01 MCV 87.9 fL (80.0-100.0) 07/06/25 18:01 MCH 29.1 pg (25.0-34.0) 07/06/25 18:01 MCHC 33.1 g/dL (32.0-36.0) 07/06/25 18:01 RDW Std Deviation 47.2 fL (36.4-46.3) H 07/06/25 18:01 RDW Coeff of Yenifer 14.6 % (11.5-14.5) H 07/06/25 18:01 Plt Count 126 K/uL (130-400) L 07/06/25 18:01 MPV 11.9 fL (9.4-12.4) 07/06/25 18:01 Immature Gran % (Auto) 0.2 % 07/06/25 18:01 Neut % (Auto) 58.4 % 07/06/25 18:01 Lymph % (Auto) 27.6 % 07/06/25 18:01 [facility] % (Auto) 10.6 % 07/06/25 18:01 Eos % (Auto) 2.5 % 07/06/25 18:01 Baso % (Auto) 0.7 % 07/06/25 18:01 Neut # (Auto) 3.55 K/uL (1.40-6.50) 07/06/25 18:01 Lymph # (Auto) 1.67 K/uL (1.20-3.40) 07/06/25 18:01 [facility] # (Auto) 0.64 K/uL (0.11-0.59) H 07/06/25 18: Eos # (Auto) 0.15 K/uL (0.00-0.50) 07/06/25 18: Baso # (Auto) 0.04 K/uL (0.00-0.20) 07/06/25 18: Immature Gran # (Auto) 0.01 K/uL (0.01-0.20) 07/06/25 18: PT 11.4 Seconds (9.0-12.0) 07/06/25 18: INR 1.1 (0.9-1.1) 07/06/25 18: APTT 35 Seconds (21-31) H 07/06/25 18: PTT Ratio 1.3 07/06/25 18: Sodium 138 mmol/L (136-145) 07/06/25 18: Potassium 4.5 mmol/L (3.5-5.1) 07/06/25 18: Chloride 104 mmol/L (98-107) 07/06/25 18: Carbon Dioxide 29 mmol/L (21-32) 07/06/25 18: Anion Gap 5 (3-11) 07/06/25 18: BUN 25 mg/dl (6-23) H 07/06/25 18: Creatinine 1.36 mg/dl (0.6-1.4) 07/06/25 18: Est Cr Clr Drug Dosing 42.2 ml/min 07/06/25 18: eGFR 52.61 07/06/25 18: BUN/Creatinine Ratio 18.4 (10-20) 07/06/25 18: Glucose 90 mg/dl (70-99(Fasting)) 07/06/25 18: Calcium 10.3 mg/dl (8.6-10.3) 07/06/25 18: Magnesium 2.2 mg/dl (1.7-2.4) 07/06/25 18: Total Bilirubin 0.5 mg/dl (0.2-1.0) 07/06/25 18: AST 28 U/L (13-39) 07/06/25 18:01 ALT 31 U/L (7-52) 07/06/25 18:01 Alkaline Phosphatase 55 U/L (34-104) 07/06/25 18:01 Troponin I High Sens 23.7 pg/ml (0-20) H 07/06/25 20:17 Total Protein 8.1 gm/dl (6.0-8.3) 07/06/25 18:01 Albumin 4.5 gm/dl (3.4-5.0) 07/06/25 18:01 Globulin 3.6 gm/dl (2.5-4.0) 07/06/25 18:01 Albumin/Globulin Ratio 1.3 (0.9-2) 07/06/25 18:01 Impressions Chest X-Ray 07/06/25 18:27 Chest radiograph, one view History: Chest pain Comparison: None Findings: Single AP view of the chest performed. No focal consolidation or pleural effusion. No pneumothorax. The heart is significantly enlarged. Coronary stents and CABG changes seen. Left chest wall AICD. Median sternotomy wires intact. Normal pulmonary vascularity. No evidence for lymphadenopathy. No visualized bony or soft tissue abnormality. Impression: No acute process Electronically signed by Serge Preciado 07-06-2025 6:58 PM ECG Additional Comments: EKG with narrow complex bradycardia rate of 54 bpm, no acute ischemic changes PG Care Time/CCT Total # of Minutes Spent Total Time Spent with Patient: Total time spent is greater than 50% in coordination of care (as documented) at patient's floor/unit and/or counseling patient: Coding Level of Care Code 39866 INT INP/OBS CARE 3/75MIN Diagnoses Nonsustained ventricular tachycardia I47.29 Palpitations R00.2 HFrEF (heart failure with reduced ejection fraction) I50.20 Hypertension I10 Hyperlipidemia E78.5 Atrial fibrillation I48.91 CAD (coronary artery disease) I25.10
[2025-07-07] MEDS ORDERED: ONDANSETRON INJ 2 MG/ML 2 ML VIAL IV PRN (00:09)
[2025-07-07] MEDS ORDERED: DOCUSATE SODIUM 100 MG CAP PO PRN (00:09)
[2025-07-07] MEDS ORDERED: clonazePAM 0.5 MG TAB PO PRN (00:09)
[2025-07-07] MEDS ORDERED: ACETAMINOPHEN 325 MG TAB PO PRN (00:09)
[2025-07-07] MEDS: LACTATED RINGER'S 500 ML IV SCH (00:38)
[2025-07-07] MEDS: EZETIMIBE 10 MG TAB PO ONE (00:47)
[2025-07-07] MEDS: METOPROLOL SUCC 50MG EXT REL TAB PO SCH (00:47)
[2025-07-07] MEDS: APIXABAN 5 MG TABLET PO ONE (00:47)
[2025-07-07] MEDS: ROSUVASTATIN CALCIUM 20 MG TAB PO ONE (00:47)
[2025-07-07] MEDS ORDERED: INFLUENZA VACC TS2025-26(65y+)/PF (IIV3) 0.5mL Syr IM ONE (01:22)
[2025-07-07 02:53] VITALS: TEMP 97.5; O2SAT 98
[2025-07-07 06:23] LABS: Hematocrit (blood only) 38.6 % (42.0-52.0); Hemoglobin 12.8 g/dl (14.0-18.0); Mean Corpuscular Hemoglobin 28.8 pg (25.0-34.0); Mean Corpuscular Volume 86.9 fL (80.0-100.0); Platelet Count 114 K/uL (130-400); RDW Standard Deviation 45.5 fL (36.4-46.3); Red Blood Count 4.44 M/uL (4.70-6.10); White Blood Count 4.70 K/ul (4.8-10.8)
[2025-07-07 06:48] LABS: Anion Gap 4.0 (3-11); Blood Urea Nitrogen 23.0 mg/dl (6-23); Calcium 9.3 mg/dl (8.6-10.3); Carbon Dioxide 25.0 mmol/L (21-32); Chloride 109.0 mmol/L (98-107); Creatinine Clr Calc Pharmacy 47.3 ml/min; Glucose 113.0 mg/dl (70-99(Fasting)); Potassium 3.9 mmol/L (3.5-5.1); Sodium 138.0 mmol/L (136-145)
[2025-07-07] MEDS: APIXABAN 5 MG TABLET PO SCH (08:17)
[2025-07-07] MEDS: EMPAGLIFLOZIN 25 MG TAB PO SCH (08:17)
[2025-07-07 08:26] VITALS: RESP 18
[2025-07-07] MEDS: FUROSEMIDE 20 MG TAB PO SCH (08:30)
[2025-07-07] MEDS: SPIRONOLACTONE 25 MG TAB PO SCH (08:31)
[2025-07-07] MEDS: VALSARTAN/SACUBITRIL 26/24MG TAB PO SCH (08:31)
[2025-07-07] MEDS: ISOSORBIDE MONO EXTENDED REL 30 MG TABCR PO SCH (08:31)
--- NOTE | 2025-07-07 11:04 | Hospitalist Progress Note ---
Date of Service July 07, 2025 Assessment & Plan (1) Nonsustained ventricular tachycardia: Plan: h LR at 80mL/hr x 500mL Monitor electrolytes and replete as needed Cardiology consultation pending - echo (2) HFrEF (heart failure with reduced ejection fraction): Plan: Continue metoprolol 100 mg p.o. twice daily Continue Entresto twice daily Continue isosorbide mononitrate 30 mg p.o. every morning Continue Jardiance 25 mg p.o. every morning Continue Lasix 20 mg p.o. every morning Continue spironolactone 25 mg p.o. every morning (3) Hypertension: Plan: -Continue medications as above (4) Hyperlipidemia: Plan: -Continue Crestor 40 mg p.o. nightly and Zetia 10 mg p.o. nightly (5) Atrial fibrillation: Plan: Continue Eliquis 5 mg p.o. twice daily. 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 Admission and Anticipated Discharge Date Admission Date: July 06, 2025 Subjective No events overnight. Pt denies palpitations, chest pain, or SOB. Review of Systems Review of Systems: CONST: Negative for fever, body aches and chills. HENT: Negative for neck pain/stiffness, headache, congestion, sore throat, swelling. EYES: Negative for discharge/pain or vision changes. RESP: Negative for cough/hemoptysis and shortness of breath. CV: Negative chest pain, difficulty breathing, palpitations. ABD: Negative pain, nausea, vomiting. : Negative increase frequency, dysuria, blood in urine or stool. MUSC: Negative for muscle aches, edema. SKIN: Negative rash, lesions/sores. NEURO: Negative headache, dizziness, weakness. Physical Exam Physical Exam: GENERAL APPEARANCE NAD, activity normal for age, well developed/ well nourished, no cyanosis, pallor, or diaphoresis. EYES lids/conjunctiva normal. EARS/NOSE/THROAT Mucous membranes moist, nares normal, lips/teeth normal uvula midline without oral pharyngeal erythema, exudate or swelling TMs normal bilaterally. No lymphangitis/lymphedema. HEAD/NECK normocephalic atraumatic, no facial trauma, neck is supple. RESPIRATORY respiratory effort normal, speaks in full sentences, no tripod position, no accessory muscle use. Lungs clear to auscultation without rhonchi, wheezes, rales CARDIAC Regular rate and rhythm, no edema. ABDOMINAL Soft, ND/NT. No evidence of fluid wave. No pulsatile masses on exam, rebound tenderness, Arrington sign or pain over Mcburney's point. MUSCLES/EXTREMITIES No abnormal range of motion, no swelling. SKIN Warm, pink and dry. No rashes, dermatoses, petechiae or lesions. NEUROLOGICAL Speech is clear and appropriate. Normal level of consciousness. Gait and coordination are normal. 5/5 strength in all extremities. PSYCH Normal mood and affect. Judgement/competence is appropriate Results & Data Results & Data Vital Signs (Past 12 Hours) Vital Signs Temp Pulse Pulse Resp BP Pulse Ox O2 Del Method 07/07/25 08:25 36.4 C L 50 L 18 91/53 L 98 Room Air 07/07/25 08:24 53 L 95/58 L 07/07/25 07:14 51 L 07/07/25 02:24 36.4 C L 54 L 16 95/56 L 98 Room Air 07/06/25 23:15 Room Air 07/06/25 23:15 36.5 C 49 L 16 105/63 100 Room Air 07/06/25 23:09 Room Air PG Care Time/CCT Total # of Minutes Spent Total Time Spent with Patient: Total time spent is greater than 50% in coordination of care (as documented) at patient's floor/unit and/or counseling patient: Coding Level of Care Code 90388 SUB INP/OBS CARE 2/35MIN Diagnoses Nonsustained ventricular tachycardia I47.29 HFrEF (heart failure with reduced ejection fraction) I50.20 Hypertension I10 Hyperlipidemia E78.5 Atrial fibrillation I48.91
--- NOTE | 2025-07-07 11:50 | Electrocardiogram Report ---
Test Reason : Blood Pressure : */* mmHG Vent. Rate : 54 BPM Atrial Rate : * BPM P-R Int : * ms QRS Dur : 112 ms QT Int : 458 ms P-R-T Axes : * -39 265 degrees QTcB Int : 434 ms Sinus bradycardia with 1st degree A-V block Left axis deviation Low voltage QRS Inferior infarct , age undetermined Anterolateral infarct , age undetermined Abnormal ECG When compared with ECG of 23-Mar-2025 15:40, Electronic ventricular pacemaker no longer present Confirmed by Dmitriy Marie ([id number]) on 07/07/2025 11:49:39 AM Referred By: Confirmed By: Dmitriy Marie
--- NOTE | 2025-07-07 12:08 | Cardiology Consultation ---
Date of Consultation July 07, 2025 Assessment & Plan (1) Nonsustained ventricular tachycardia: -Converted with appropriate antitachycardia pacing. -Serologic workup unremarkable. -Arrhythmia likely secondary to left ventricular dysfunction. (2) CAD (coronary artery disease): -s/p CABG in the late . -s/p intracoronary stents, details unknown. -Continue medical management. (3) Cardiomyopathy: -Well compensated at this time. -Continue medical management. (4) ICD (implantable cardioverter-defibrillator) in place: -Properly functioning on interrogation. History of Present Illness Attending Physician: Jose Arceo MD History of Present Illness Mr. Rogers is an 79-year-old male admitted yesterday with symptomatic nonsustained ventricular tachycardia. This consultation was ordered to assist in his cardiac management. Of note, the patient typically follows with Dr. Kimble in the outpatient setting. The patient was in his usual state of health until the day of presentation. He had just started walking on a treadmill when he had the abrupt onset of palpitations, lightheadedness, and near syncope. He presented to the emergency room and interrogation of his single-chamber ICD noted a 21 beat run of ventricular tachycardia which broke with antitachycardia pacing. His serologic workup was unremarkable. The patient carries a history of coronary artery disease having undergone bypass surgery back in the late . He has also had several intra coronary stents placed, however, details are unknown. He has also had a mitral valve repair. He also suffered an episode of sudden cardiac back in 2002 which resulted in a single-chamber ICD. He had a generator change performed in December 2024. He also has a history of an ischemic cardiomyopathy with an ejection fraction of 20 to 25% on an echocardiogram performed back in February. He does follow in the CHF clinic. He also carries a history of paroxysmal atrial fibrillation. Past medical and surgical history 1. Coronary artery diseasesee above 2. [id number] 3. Mitral valve repair 4. Ischemic cardiomyopathy 5. Systolic CHF 6. Paroxysmal atrial fibrillation 7. Sudden cardiac [id number] 8. Single-chamber [id number], December 2024 9. Hypertension 10. Hypercholesterolemia Social history , lives with his at [facility] [place] No tobacco Occasional alcohol Family history Noncontributory Review of systems A 10 point review of system was undertaken and negative except for that described above. Allergies Allergy/AdvReac Type Severity Reaction Status Date / Time No Known Allergies Allergy Unverified 06/11/25 15:05 Home Medications Medication Instructions Recorded Confirmed Type apixaban 5 mg tablet (Eliquis) 5 mg PO BID 02/14/25 07/06/25 History clonazepam 0.5 mg tablet 0.25 mg PO DAILY PRN Anxiety 02/14/25 07/06/25 History empagliflozin 25 mg tablet 25 mg PO QAM 02/14/25 07/06/25 History (Jardiance) ezetimibe 10 mg tablet 10 mg PO HS 02/14/25 07/06/25 History furosemide 20 mg tablet 20 mg PO QAM 02/14/25 07/06/25 History isosorbide mononitrate 30 mg 30 mg PO QAM 02/14/25 07/06/25 History tablet,extended release 24 hr metoprolol succinate 100 mg 100 mg PO AMPM 02/14/25 07/06/25 History tablet,extended release 24 hr yharpeqn-of-[id number] 300 mcg-K 60 1 tab PO QAM 02/14/25 07/06/25 History mcg-lycop 600 mcg-lutein 300 mcg tablet (Centrum Silver Men) nitroglycerin 0.4 mg sublingual 0.4 mg sublingual UD PRN Chest Pain 02/14/25 07/06/25 History tablet (Nitrostat) rosuvastatin 40 mg tablet 40 mg PO HS 02/14/25 07/06/25 History sacubitril 24 mg-valsartan 26 mg 1 tab PO BID 02/14/25 07/06/25 History tablet (Entresto) spironolactone 25 mg tablet 25 mg PO QAM 02/14/25 07/06/25 History peg 3350-electrolytes 236 240 ml PO Q10M #4,000 mL 07/05/25 07/06/25 Rx gram-22.74 gram-6.74 gram-5.86 gram solution (GaviLyte-G) Patient History Medical History Hx of blood clots Bradycardia Dyspnea Mitral regurgitation Heart failure, systolic, with acute decompensation Atrial fibrillation Elevated troponin Congestive heart failure Hyperlipidemia Hypertension 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 CAD (coronary artery disease) s/p CABG, stenting Surgical History Hx of colonoscopy History of coronary artery stent placement between 1987 and 2019 History of mitral valve replacement History of heart bypass surgery 2019 History of cardiac defibrillator placement Family History Father Coronary heart disease Heart disease Sister Breast cancer Social History Smoking Status: Former smoker Tobacco Type: Cigarettes Age Started Using Tobacco: 23; Age Quit Using Tobacco: 28; packs per day: 0.25; Cigarettes Per Day: 1; Smoking End Date: over 50 years ago; Second Hand Exposure: No; Do You Dip or Chew Tobacco: No; Hx Alcohol Use: Yes Alcohol type: wine Alcohol Intake Frequency: 2-3 x/Week Hx Substance Use: No Preferred Language: Chinese Communication Ability: Effective Fence Repairman Required: No Beliefs That Will Affect Care: None marital status: Current Living Situation: Alone Current Living Situation Comment: lives alone, in memory care facility current occupational status: retired Other Information That Helps Us Care for You: No Feels Safe at Home: Yes Safety Concerns: Feels Safe At This Time Assistive Devices: Glasses and Hearing Aid - Bilateral Physical Exam Physical Exam: In general this is a well-developed well-nourished white male in no acute distress. HEENT exam is negative. Neck reveals normal carotid upstrokes without bruits. Jugular venous pressure is flat at 90. There is no thyromegaly. Cardiovascular exam reveals a regular rhythm with distant heart sounds. No obvious murmurs. No S3. Chest reveals a palpable device in the left subclavicu lar region. Lungs are clear without rales, rhonchi, or wheezes. Abdomen is soft without bruits. Extremities reveal intact radial artery and posterior tibial pulses bilaterally. There is no peripheral edema. Results & Data Vital Signs (Past 12 Hours) Vital Signs Temp Pulse Pulse Resp BP Pulse Ox O2 Del Method 07/07/25 08:25 36.4 C L 50 L 18 91/53 L 98 Room Air 07/07/25 08:24 53 L 95/58 L 07/07/25 07:14 51 L 07/07/25 02:24 36.4 C L 54 L 16 95/56 L 98 Room Air Laboratory Results CBC and electrolytes are all unremarkable. Initial high-sensitivity troponin was 24 with follow-up values of 24 and 25. Diagnostic Findings Quick look echocardiogram notes severe left ventricular systolic function with an ejection fraction of 20 to 25%. There is global hypokinesis. A Lexiscan performed on May 04, 2025 noted a large scar in the inferolateral and anterolateral hernandez but no evidence of myocardial ischemia. Ejection fraction was 20%. PG Care Time/CCT Total # of Minutes Spent Total Time Spent with Patient: Total time spent is greater than 50% in coordination of care (as documented) at patient's floor/unit and/or counseling patient: Coding Level of Care Code 63836 INT INP/OBS CARE 375MIN Diagnoses Nonsustained ventricular tachycardia I47.29 CAD (coronary artery disease) I25.10 Cardiomyopathy I42.9 ICD (implantable cardioverter-defibrillator) in place Z95.810
--- NOTE | 2025-07-07 12:51 | XCELERA ---
[id number]
--- NOTE | 2025-07-07 14:02 | Discharge Summary ---
Discharge Summary Date of Service July 07, 2025 Principal Dx & Hospital Course #1 = Principal Diagnosis (1) Nonsustained ventricular tachycardia: h LR at 80mL/hr x 500mL Monitor electrolytes and replete as needed Cardiology consultation pending - echo -Converted with appropriate antitachycardia pacing. -Serologic workup unremarkable. -Arrhythmia likely secondary to left ventricular dysfunction. (2) HFrEF (heart failure with reduced ejection fraction): Continue metoprolol 100 mg p.o. twice daily Continue Entresto twice daily Continue isosorbide mononitrate 30 mg p.o. every morning Continue Jardiance 25 mg p.o. every morning Continue Lasix 20 mg p.o. every morning Continue spironolactone 25 mg p.o. every morning (3) Hypertension: -Continue medications as above (4) Hyperlipidemia: -Continue Crestor 40 mg p.o. nightly and Zetia 10 mg p.o. nightly (5) Atrial fibrillation: Continue Eliquis 5 mg p.o. twice daily. 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 Admission HPI Per Admitting Provider De Rogers is an 79-year-old male with extensive cardiac history presenting with episode of palpitations, lightheadedness and near syncope. Patient with history of of coronary artery disease status post CABG in the 80s. [id number] cardiac arrest in 2002 resulting in implantation of single- chamber ICD. Status post open mitral valve repair as well as subsequent stenting of coronary arteries. he has atrial fibrillation as well as heart failure with reduced ejection fraction, hypertension and hyperlipidemia. Patient is overall very active and doing well at home. He exercises several times weekly on a treadmill. This afternoon around 1330 he got to the gym and started walking on the treadmill. Shortly after he felt palpitations, lighthea dedness and near syncope. He states that he felt overwhelmingly fatigued so he decided to go home. He continued to feel tired at home. He did go to [facility] to visit his and ask staff to check his blood pressure. Blood pressure 150/83 at [facility]. Patient had another brief episode of palpitations and lightheadedness which quickly resolved. Given his ongoing symptoms he decided to come to the emergency room. He reports having a brief episode of chest tightness while in the ER that resolved spontaneously. Otherwise no additional complaints. Denies fever, chills, shortness of breath, cough, abdominal pain, nausea, vomiting, diarrhea. Discharge Exam GENERAL APPEARANCE NAD, activity normal for age, well developed/ well nourished, no cyanosis, pallor, or diaphoresis. EYES lids/conjunctiva normal. EARS/NOSE/THROAT Mucous membranes moist, nares normal, lips/teeth normal uvula midline without oral pharyngeal erythema, e xudate or swelling TMs normal bilaterally. No lymphangitis/lymphedema. HEAD/NECK normocephalic atraumatic, no facial trauma, neck is supple. RESPIRATORY respiratory effort normal, speaks in full sentences, no tripod position, no accessory muscle use. Lungs clear to auscultation without rhonchi, wheezes, rales CARDIAC Regular rate and rhythm, no edema. ABDOMINAL Soft, ND/NT. No evidence of fluid wave. No pulsatile masses on exam, rebound tenderness, Arrington sign or pain over Mcburney's point. MUSCLES/EXTREMITIES No abnormal range of motion, no swelling. SKIN Warm, pink and dry. No rashes, dermatoses, petechiae or lesions. NEUROLOGICAL Speech is clear and appropriate. Normal level of consciousness. Gait and coordination are normal. 5/5 strength in all extremities. PSYCH Normal mood and affect. Judgement/competence is appropriate Discharge Plan Discharge Items Patient Disposition: Home - Self-Care Reason For Visit: PALPITATIONS, NSVT ON INTERROGATION Discharge Diagnosis: palpitations Condition on Discharge: Fair Activity: Resume your previous activity Non-emergency contact: Primary Care Provider Call non-emergency contact if: you have any medication questions Follow-up/Referrals: Issa Ellis MD [Primary Care Provider] - 07/17/25 1:30 pm Diet: Regular Addtl Attending Provider Instructions: Follow up with pmh in 2 weeks. Stand-Alone Forms: My [employer], Smoking Cessation Medications and DC Order Prescriptions: Continued peg 3350-electrolytes [GaviLyte-G] 236-22.74-6.74 -5.86 gram recon soln 240 ml PO Q10M Qty: 4000 0RF Rx Instructions: until fecal effluent is clear metoprolol succinate 100 mg tablet extended release 24 hr 100 mg PO AMPM furosemide 20 mg tablet 20 mg PO QAM ezetimibe 10 mg tablet 10 mg PO HS rosuvastatin 40 mg tablet 40 mg PO HS isosorbide mononitrate 30 mg tablet extended release 24 hr 30 mg PO QAM spironolactone 25 mg tablet 25 mg PO QAM Eliquis 5 mg Tablet 5 mg PO BID Jardiance 25 mg Tablet 25 mg PO QAM sacubitril-valsartan [Entresto] 24-26 mg Tablet 1 tab PO BID nitroglycerin [Nitrostat] 0.4 mg Tablet, Sublingual 0.4 mg sublingual UD PRN (Reason: Chest Pain) clonazepam 0.5 mg Tablet 0.25 mg PO DAILY PRN (Reason: Anxiety) Centrum Silver Men [id number] mcg Tablet 1 tab PO QAM Discharge Orders: Discharge Order (Routine); Ordered 07/07/25 Ordered By: Jose Arceo Admission Data Admit Date/Time: 07/06/25 23:04 Attending Provider: Jose Arceo Admit Provider: Sapna Stark Primary Care Provider: Issa Ellis Other Providers: Serge Kimble; Sapna Stark Hospital Stay Data Consultations 07/06/25 21:16 ED Decision to Admit Stat 07/07/25 00:09 Consult Cardiology Routine Discharge Instructions Given to Patient (Per Discharging Provider) Follow up with [facility] in 2 weeks. Total Time Total Time Spent Total Time Spent (In Minutes): 50 Coding Level of Care Code 51087 INP/OBS DISCH >30 MIN Diagnoses Nonsustained ventricular tachycardia I47.29 HFrEF (heart failure with reduced ejection fraction) I50.20 Hypertension I10 Hyperlipidemia E78.5 Atrial fibrillation I48.91
[2025-07-07 14:26] VITALS: BP 110/56; PULSE 58
[2025-07-07] MEDS ORDERED: ROSUVASTATIN CALCIUM 20 MG TAB PO SCH (21:00)
[2025-07-07] MEDS ORDERED: EZETIMIBE 10 MG TAB PO SCH (21:00)
== END 2025-07-07 14:59 | disposition home or self-care (01) ==
LOC: ED 17:38 → 2N 17:38 → SUATTDRO 23:04 → 2N 23:09